=== PATIENT | female | born 1960 | race Caucasian/White ===

== ENCOUNTER 2020-03-09 08:20 | Day surgery (SDC) | payer MEDICAID, SELFPAY ==
--- NOTE | 2020-03-08 09:30 | HO.ANESPROP2 ---
HPI - Anesthesia Eval Consult details Narrative: 59yo F for EGD and Colonoscopy PMFSH Past Medical History Medical History Abdominal pain Back pain Benign brain tumor Depression Eczema Fibromyalgia GERD (gastroesophageal reflux disease) Hypertension Migraine Chao's neuroma of both feet Nephrolithiasis Panic disorder Surgical History Surgical History History of cholecystectomy History of colonoscopy Social History Social History Alcohol intake: never Smoking Status: Light tobacco smoker Use of substances other than those prescribed or required for medical reasons: No Meds Allergies Allergy/AdvReac Type Severity Reaction Status Date / Time acetaminophen [Tylenol] Allergy Unknown Verified 01/11/20 00:00 aspirin [ASPIRIN] Allergy Unknown ANAPHYLAXIS, Unverified 01/26/20 16:16 nausea & vomiting ibuprofen [From MOTRIN] Allergy Unknown NAUSEA & Unverified 01/26/20 16:16 VOMITING naproxen [NAPROXEN] Allergy Unknown NAUSEA & Unverified 01/26/20 16:16 VOMITING Ibuprofen Allergy Unknown nausea & Uncoded 01/11/20 00:00 vomiting Exam Exam Date and Time: March 08, 202030 Pertinent Lab Results Pertinent Lab Results: Laboratory Tests 12/12/19 12/12/19 21:15 21:15 WBC 9.2 Hgb 12.4 Hct 37.8 Plt Count 257 Sodium 137 Potassium 4.6 Chloride 103 BUN 14 Creatinine 0.63 Assessment and Plan Assessment Anesthesia Assessment: Chart Reviewed
[2020-03-09 08:56] VITALS: BMI 29.7
[2020-03-09 09:06] VITALS: BP 112/57; PULSE 82; RESP 18; TEMP 36.2; O2SAT 95
[2020-03-09 09:15] LABS: Glucose, Whole Blood 107 mg/dL (60-115)
[2020-03-09] MEDS: Lactated Ringers 1,000 ML 100 ML IVCONT (09:15)
--- NOTE | 2020-03-09 09:33 | MHC.SHP ---
Pre-Procedural Eval Section B Chief Complaint: change of liver Details of Present Illness: Colon cancer screening, family history of colon cancer. nausea, decreased appetite-persistent acid reflux-her appetite seems much less. Relevant Family History (Specify if Yes): Yes Relevant Social History: Tobacco Use Present Medications: see Short Stay Collaborative assessment Medical History: Significant History ( Migraine. Tobacco use. History of nephrolitis. GERD. Chronic back pain. Abdominal pain of rt. Upper quadrant. Benign brain tumor. Depression. eczema of RT hand. Fibromyalgia. Nephrolithiasis. Hypertension. Pa) History of Previous Operations: Relevant previous surgery/procedure and date(s) (Cholecystectomy 2015 Colonoscopy-10 yrs ago ) Allergies: Allergies Allergy/AdvReac Type Severity Reaction Status Date / Time aspirin [ASPIRIN] Allergy Unknown ANAPHYLAXIS, Unverified 01/26/20 16:16 nausea & vomiting ibuprofen [From MOTRIN] Allergy Unknown NAUSEA & Unverified 01/26/20 16:16 VOMITING naproxen [NAPROXEN] Allergy Unknown NAUSEA & Unverified 01/26/20 16:16 VOMITING Ibuprofen Allergy Unknown nausea & Uncoded 01/11/20 00:00 vomiting Review of Systems Sugical H&P ROS: Negative: Cardiovascular and Respiratory and Yes, Specify: Gastrointestinal (RUQ pain) Exam Surgical H&P Exam: Normal: Heart, Normal: Lungs and Normal: Extremities and Significant Findings: Abdomen (RUQ tenderness) Plan Diagnosis/Plan: Unchanged Patient has been examined and remains a candidate for the planned procedure
--- NOTE | 2020-03-09 09:35 | P.BOP_ITS ---
Brief Operative Note Date of procedure: 03/11/20 Pre-op diagnosis: colon cancer screening, right upper quadrant pain and nausea. Post-op diagnosis: other (Gastritis, diverticulosis, hemorrhoids) Procedure: FLEXIBLE TRANSORAL UPPER GASTROINTESTINAL ENDOSCOPY AND COLONOSCOPY PROCEDURE NOTE UPPER ENDOSCOPY Consent: Indications for the procedure and potential complications of bleeding, perforation, reaction to medications and missed diagnosis were discussed with the patient and informed consent was obtained. Instrument: Olympus GIF H 190 mid size upper endoscope Monitoring: Vital signs and clinical assessment, continuous EKG monitoring, Pulse oximetry, Carbon Dioxide monitoring and blood pressure monitoring were done throughout the procedure. Procedure: The patient was placed in the left lateral decubitis position and pre-procedure medications were administered and a bite block was placed. The endoscope was inserted into the mouth and advanced under direct vision to the third part of duodenum. A careful inspection was made as the upper endoscope was withdrawn including a retroflexed examination of the proximal stomach; Findings and interventions are described below. Findings: Larynx: Normal Esophagus: GE junction at 36 cms. No esophagitis or Barretts Stomach: Mild diffuse gastric erythema with nodular appearing gastric mucosa. Biopsies were obtained from the gastric body and antrum. Grade 2 flap valve on retroflexed examination of the cardia. Duodenum: Normal bulb and descending duodenum. Biopsies were obtained from 3rd part of the duodenum to check for celiac sprue Intervention: Biopsies as noted above COLONOSCOPY PROCEDURE NOTE Consent: Indications for the procedure and potential complications of bleeding, perforation, reaction to medications and missed diagnosis were discussed with the patient and informed consent was obtained. Instrument: Olympus PCF H 190 L variable stiffness pediatric colonoscope Monitoring: Vital signs and clinical assessment, intermittent blood pressure monitoring, continuous EKG monitoring, Pulse oximetry and Carbon Dioxide monitoring were done throughout the procedure. Colon withdrawl time was 14 minutes. Procedure: The patient was placed in the left lateral decubitis position and pre-procedure medications were administered. After a digital rectal examination of the ano-rectum, the video colonoscope was inserted into the rectum and advanced through the colon to the cecum. The colonoscope was slowly withdrawn in a retrograde panoramic fashion and the colon mucosa was carefully examined including a retroflexed view of the rectum. Findings and interventions are described below. Procedure Difficulty: Without difficulty Findings: Terminal Ileum: Not evaluated Cecum: Normal Ascending Colon: Normal Transverse Colon: Normal Descending Colon: moderate diverticulosis Sigmoid Colon: Moderate diverticulosis Rectum: Normal Ano-rectum: Moderate internal hemorrhoids Colon preparation: Good after some irrigation Impression and Post Procedure Diagnosis: Endoscopy Findings STOMACH: Mild diffuse gastric erythema with nodular appearing gastric mucosa. Biopsies were obtained from the gastric body and antrum DUODENUM: Normal - bxed to check for celiac sprue Colonoscopy Findings: No polyps were detected. Random biopsies were obtained from the colon. Moderate diverticulosis seen in the left colon Moderate hemorrhoids on retroflexed exam. Plan: Await pathology results Patient has an appointment on 03/20/20in the GI Clinic with KURT Rosales. Repeat Colonoscopy interval based on path results - in 5 years due to positive FH of colon cancer. Above findings were reviewed with the patient and Gastritis and diverticulosis handouts were given in the discharge area Surgeon: Bertin Armendariz MD Anesthesia: MAC (Dr Heard & Dr Reyna) Clinical Mental Health Counselor: Mariam Shah Estimated blood loss (mL): 0 Pathology: other (A. Small bowel, B. Gastric antrum, C. Gastric body, D. Ran dom colon bxs.) Condition: stable Disposition: PACU
--- NOTE | 2020-03-09 09:37 | P.CONAN_ITS ---
[facility] Past Medical History Medical History Abdominal pain Back pain Benign brain tumor Depression Eczema Fibromyalgia GERD (gastroesophageal reflux disease) Hypertension Migraine Chao's neuroma of both feet Nephrolithiasis Panic disorder Surgical History Surgical History History of cholecystectomy History of colonoscopy Social History Social History Alcohol intake: never Smoking Status: Current some day smoker Use of substances other than those prescribed or required for medical reasons: No Advance Directives: No Meds Allergies Allergy/AdvReac Type Severity Reaction Status Date / Time aspirin [ASPIRIN] Allergy Unknown ANAPHYLAXIS, Unverified 01/26/20 16:16 nausea & vomiting ibuprofen [From MOTRIN] Allergy Unknown NAUSEA & Unverified 01/26/20 16:16 VOMITING naproxen [NAPROXEN] Allergy Unknown NAUSEA & Unverified 01/26/20 16:16 VOMITING Ibuprofen Allergy Unknown nausea & Uncoded 01/11/20 00:00 vomiting Home Medications Medication Instructions Recorded Confirmed Type acetaminophen 500 mg PO Q6H PRN 03/09/20 03/09/20 History clonazepam 1 mg PO TID 03/09/20 03/09/20 History fluticasone propionate 1 inh INHALATION BID 03/09/20 03/09/20 History metformin 500 mg PO DAILY 03/09/20 03/09/20 History omeprazole 20 mg PO DAILY 03/09/20 03/09/20 History sumatriptan succinate 50 mg PO Q2-4H PRN 03/09/20 03/09/20 History Exam Exam Date and Time: March 09, 2020 0937 Height,Weight and Vital Signs: Height 5 ft Weight 68.946 kg Last Vital Signs Temp 97.1 F 03/09/20 09:06 Pulse 82 03/09/20 09:06 Resp 18 03/09/20 09:06 BP 112/57 L 03/09/20 09:06 Pulse Ox 95 03/09/20 09:06 Pertinent Lab Results Pertinent Lab Results: Laboratory Tests 03/09/20 09:09 POC Glucose 107 Airway Mallampati Class: II TM Dist: >3cm Neck ROM: Full Loose/Missing/Broken Teeth: No Heart: rrr Lungs: clear Assessment and Plan Assessment Anesthesia Assessment: Anesthesia Plan Discussed and Chart Reviewed Final Anesthetic Review NPO: Yes ASA Class: II Final Preanesthetic Review: No Changes in Pt Med Stat, Meds/Allgs Chart Reviewed, Consent Obtained/Reviewed and Anes Risks/Benef Reviewed Patient Risk: Intermediate Procedure Risk: Low Anesthetic Plan Anesthetic Plan: MAC: Disposition: Standard PACU
[2020-03-09 10:43] VITALS: BP 95/65; PULSE 71; RESP 16; TEMP 36.2; O2SAT 95
[2020-03-09 10:53] VITALS: BP 111/69; PULSE 74; RESP 19; TEMP 36.4; O2SAT 95
--- NOTE | 2020-03-09 11:01 | HO.POSTANES ---
Post Anesthesia Evaluation Post Anesthesia Evaluation Vital Signs: Vital Signs Temp Pulse Resp BP Pulse Ox 03/09/20 10:43 97.2 F 71 16 95/65 95 03/09/20 09:06 97.1 F 82 18 112/57 L 95 Anesthesia: Monitored Mental Status: Awake Pain Control: Satisfactory Nausea/Vomiting: None Hydration: Adequate Anesthesia-Related Issues: No Anes. Related Issues
--- NOTE | 2020-03-11 19:33 | W.PM.OPN ---
Operative Note Operative Note Narrative: Date of procedure: 03/11/20 Pre-op diagnosis: colon cancer screening, right upper quadrant pain and nausea. Post-op diagnosis: other (Gastritis, diverticulosis, hemorrhoids) PROCEDURE: FLEXIBLE TRANSORAL UPPER GASTROINTESTINAL ENDOSCOPY WITH BIOPSIES AND COLONOSCOPY TILL CECUM WITH BIOPSIES Consent: Indications for the procedure and potential complications of bleeding, perforation, reaction to medications, aspiration and missed diagnosis were discussed with the patient and informed consent was obtained. Monitoring: Vital signs and clinical assessment, continuous EKG monitoring, Pulse oximetry, Carbon Dioxide monitoring and blood pressure monitoring were done throughout the procedure. UPPER ENDOSCOPY Instrument: Olympus GIF H 190 mid size upper endoscope Procedure: The patient was placed in the left lateral decubitis position and pre-procedure medications were administered and a bite block was placed. The endoscope was inserted into the mouth and advanced under direct vision to the third part of duodenum. A careful inspection was made as the upper endoscope was withdrawn including a retroflexed examination of the proximal stomach; Findings and interventions are described below. Findings: Larynx: Normal Esophagus: GE junction at 36 cms. No esophagitis or Barretts Stomach: Mild diffuse gastric erythema with nodular appearing gastric mucosa. Biopsies were obtained from the gastric body and antrum. Grade 2 flap valve on retroflexed examination of the cardia. Duodenum: Normal bulb and descending duodenum. Biopsies were obtained from 3rd part of the duodenum to check for celiac sprue Intervention: Biopsies as noted above COLONOSCOPY PROCEDURE NOTE Instrument: Olympus PCF H 190 L variable stiffness pediatric colonoscope Colon withdrawl time was 14 minutes. Procedure: The patient was placed in the left lateral decubitis position and pre-procedure medications were administered. After a digital rectal examination of the ano-rectum, the video colonoscope was inserted into the rectum and advanced through the colon to the cecum. The colonoscope was slowly withdrawn in a retrograde panoramic fashion and the colon mucosa was carefully examined including a retroflexed view of the rectum. Findings and interventions are described below. Procedure Difficulty: Without difficulty Findings: Terminal Ileum: Not evaluated Cecum: Normal Ascending Colon: Normal Transverse Colon: Normal Descending Colon: moderate diverticulosis Sigmoid Colon: Moderate diverticulosis Rectum: Normal Ano-rectum: Moderate internal hemorrhoids Colon preparation: Good after some irrigation Impression and Post Procedure Diagnosis: Endoscopy Findings STOMACH: Mild diffuse gastric erythema with nodular appearing gastric mucosa. Biopsies were obtained from the gastric body and antrum DUODENUM: Normal - bxed to check for celiac sprue Colonoscopy Findings: No polyps were detected. Random biopsies were obtained from the colon. Moderate diverticulosis seen in the left colon Moderate hemorrhoids on retroflexed exam. Plan: Await pathology results Patient has an appointment on 03/20/20 in the GI Clinic with KURT Rosales. Repeat Colonoscopy interval based on path results - in 5 years due to positive FH of colon cancer. Above findings were reviewed with the patient and Gastritis and diverticulosis handouts were given in the discharge area Surgeon: Bertin Armendariz MD Anesthesia: MAC (Dr Heard & Dr Reyna) Box Truck Driver: Mariam Shah Estimated blood loss (mL): 0 Pathology: other (A. Small bowel, B. Gastric antrum, C. Gastric body, D. Random colon bxs.) Condition: stable Disposition: PACU
== END 2020-03-09 11:15 | disposition home or self-care (01) ==
PROVIDERS: PCP Internal Medicine; Visit Provider Internal Medicine Gastroenterology
PROC: (CPT 45380; principal; 2020-03-09 09:30)
DX: Z12.11 Encounter for screening for malignant neoplasm of colon (principal); Z80.0 Family history of malignant neoplasm of digestive organs; K57.30 Diverticulosis of large intestine without perforation or abscess without bleeding; K64.8 Other hemorrhoids; K29.50 Unspecified chronic gastritis without bleeding; B96.81 Helicobacter pylori [H. pylori] as the cause of diseases classified elsewhere; K21.9 Gastro-esophageal reflux disease without esophagitis; K76.0 Fatty (change of) liver, not elsewhere classified; I10 Essential (primary) hypertension; Z79.899 Other long term (current) drug therapy; Z90.49 Acquired absence of other specified parts of digestive tract; Z86.011 Personal history of benign neoplasm of the brain; Z88.8 Allergy status to other drugs, medicaments and biological substances; F17.200 Nicotine dependence, unspecified, uncomplicated
CPT/HCPCS: 45380; 43239; 82947; 88305; 88342

== ENCOUNTER → 2020-04-09 08:17 | Outpatient (BNVA) | payer MEDICAID, SELFPAY | PROVIDERS: PCP Internal Medicine; Referring Provider Internal Medicine; Visit Provider Physician Assistant | DX: Z76.89 Persons encountering health services in other specified circumstances (principal) ==

== ENCOUNTER → 2020-05-14 08:58 | Outpatient (BNVA) | payer MEDICAID, SELFPAY | PROVIDERS: PCP Internal Medicine; Visit Provider Physician Assistant | DX: Z76.89 Persons encountering health services in other specified circumstances (principal) ==

== ENCOUNTER → 2020-05-17 14:42 | Outpatient (BNVA) | payer MEDICAID, SELFPAY | PROVIDERS: PCP Internal Medicine; Visit Provider Physician Assistant | DX: Z76.89 Persons encountering health services in other specified circumstances (principal) ==

== ENCOUNTER → 2021-01-01 08:32 | Outpatient (BNVA) | payer MEDICAID, SELFPAY | PROVIDERS: Visit Provider Physician Assistant ==

== ENCOUNTER → 2021-02-05 08:29 | Outpatient (BNVA) | payer MEDICAID, SELFPAY | PROVIDERS: Visit Provider Physician Assistant ==

== ENCOUNTER 2022-10-24 13:08 | Outpatient (REF) | payer MEDICAID, SELFPAY ==
--- NOTE | ~2022-10-24 | XR_ITS ---
EXAMINATION: XR LUMBOSACRAL SPINE WITH OBLIQUES CLINICAL INFORMATION: Fall COMPARISON: None available. TECHNIQUE: AP, both oblique, and lateral views of the lumbar spine. Lateral view of the lumbosacral junction. FINDINGS: Bone alignment is normal. No fracture or dislocation. Disc spaces are normal. There is lower lumbar spine facet arthritis. No pars defect. XR/XR lumbar spine 4V min IMPRESSION: Degenerative changes.
== END 2022-10-24 13:09 | disposition home or self-care (01) ==
LOC: HO.HHCX 13:08
PROVIDERS: Visit Provider Internal Medicine
DX: M47.816 Spondylosis without myelopathy or radiculopathy, lumbar region (principal)
CPT/HCPCS: 72110

== ENCOUNTER 2023-02-10 14:09 | Outpatient (REF) | payer MEDICAID, SELFPAY ==
--- NOTE | ~2023-02-10 | MR_ITS ---
EXAMINATION: MR LUMBAR SPINE WITHOUT CONTRAST CLINICAL INFORMATION: 62-year-old with radiculopathy. Self-reported low back pain, numbness in hips and multiple falls. History of coccygeal tumor. COMPARISON: None available. TECHNIQUE: MRI of the lumbar spine was obtained using routine sequences without contrast. FINDINGS: Coronal Alignment: Slight lower lumbar dextrocurvature noted, minimally convex to the right at L4-L5. Sagittal Alignment: Trace anterolisthesis at L4-L5 without spondylolysis. Otherwise normal spinal alignment in the sagittal plane. Lumbosacral Junction: Normal. There are 5 msf-vww-rpftttb lumbar-type vertebral bodies. Vertebral Bodies: Vertebral body heights are well maintained. Disc Spaces and Endplates: The intervertebral disc space heights are well maintained. There is multilevel disc desiccation. Minor anterior marginal endplate spurring noted at the levels between L2-L3 and L5-S1 inclusive. Endplates appear grossly intact. Spinal Canal: No abnormal developmental findings. Bone Marrow: Minimal type 2 degenerative marrow signal changes along the endplates at L2-L3. A 1.7 cm benign vertebral hemangioma in the L4 vertebral body on the right. A 2.7 cm benign vertebral hemangioma in the S1 vertebral segment. No suspicious marrow replacing process or bone marrow edema. Conus Medullaris: Terminates at L1. Morphology and signal is normal. Intradural Nerve Roots: Within normal limits. L5-S1: Shallow broad-based disc protrusion with underlying mild disc bulging with minimal indentation of the ventral thecal sac. Zlbp-ux-ofndtlmn facet arthropathy, left more than right without significant canal stenosis. There is fazo-mr-yqpgsiqs bilateral neural foraminal stenosis, with mild encroachment on the exiting L5 nerve roots bilaterally. L4-L5: Slight unroofing of the posterior disc margin related to trace anterolisthesis. There is disc bulging and a superimposed shallow broad-based left paramedian to lateral foraminal disc protrusion with slight flattening of the dural sac asymmetric to the left. There is ladq-sx-gonurjbq left-sided and moderate to marked right-sided facet arthropathy without central canal stenosis. There is slight narrowing of the left subarticular zone without neural impingement. There is wyzj-ge-hinssszy left and mild right-sided neural foraminal narrowing with left lateral disc protrusion contacting the extra foraminal left L4 nerve root. L3-L4: Small foraminal disc protrusions noted bilaterally with minimal underlying disc bulging, with mild facet arthrosis on the right without significant canal stenosis. There is mild foraminal narrowing on the left without neural impingement. L2-L3: No significant disc bulge or herniation. Mild facet hypertrophic change on the right. No canal or foraminal stenosis. L1-L2: Normal annular contour. No facet arthrosis, canal or neuroforaminal stenosis. Paravertebral and Included Extraspinal Soft Tissues: The visualized paravertebral soft tissues and included retroperitoneal structures are unremarkable within the limitations of the exam. MR/MR lumbar spine wo con IMPRESSION: 1. Slight lower lumbar curvature, convex to the right at L4-L5 with trace anterolisthesis at L4-L5 without spondylolysis. 2. Multilevel mild degrees of disc desiccation and spondylosis with multilevel disc bulging and broad-based left paramedian to lateral foraminal disc protrusion at L4-L5 with multilevel bilateral facet arthropathy. No significant central canal stenosis. 3. Zlxk-sf-ymqpchqj bilateral neural foraminal stenosis at L5-S1 with mild encroachment on the exiting L5 nerve roots bilaterally. Efwy-lh-mtamkpfa left and mild right-sided neural foraminal stenosis at L4-L5 with left lateral disc protrusion contacting the extraforaminal left L4 nerve root. 4. Small foraminal disc protrusions bilaterally at L3-L4 with mild left-sided foraminal narrowing without neural impingement.
== END 2023-02-10 14:10 | disposition home or self-care (01) ==
LOC: HO.MRI 14:09
PROVIDERS: PCP Internal Medicine; Visit Provider Internal Medicine
DX: M47.26 Other spondylosis with radiculopathy, lumbar region (principal)
CPT/HCPCS: 72148

== ENCOUNTER 2024-08-30 14:39 | Outpatient (REF) | payer MEDICAID, SELFPAY ==
--- NOTE | ~2024-08-30 | XR_ITS ---
EXAMINATION: XR LUMBOSACRAL SPINE CLINICAL INFORMATION: Chronic back pain COMPARISON: None available. TECHNIQUE: Three views of the lumbosacral spine. FINDINGS: No scoliosis. Normal lordosis. No fracture, compression deformity, or suspicious bone lesion. No subluxations. Minimal disc degeneration noted most significant at L2-3. Normal facet alignment. SI joints and sacrum appear normal. Soft tissues demonstrate cholecystectomy clips. XR/XR lumbar spine 2-3V IMPRESSION: No acute bony abnormalities. Early disc degeneration. Electronically signed by: Dwight Colón MD 08/30/2024 04:02 PM EDT
--- NOTE | ~2024-08-30 | XR_ITS ---
EXAMINATION: XR THORACIC SPINE CLINICAL INFORMATION: Chronic back pain COMPARISON: None available. TECHNIQUE: 3 views of the thoracic spine were obtained. FINDINGS: There is no significant scoliosis. There is a normal kyphosis. There is no compression deformity, acute fracture, or suspicious bone lesion. There is no malalignment. Early multilevel disc space degeneration. Normal facet alignment. Soft tissues, imaged lungs and mediastinal contents appear normal. XR/XR thoracic spine 3V IMPRESSION: 1. No acute findings. Minimal disc degeneration. Electronically signed by: Dwight Colón MD 08/30/2024 04:00 PM EDT
--- NOTE | ~2024-08-30 | XR_ITS ---
EXAMINATION: XR KNEE, RIGHT CLINICAL INFORMATION: ongoing pain in her right knee COMPARISON: None available. TECHNIQUE: Four views of the right knee. FINDINGS: No fracture or joint effusion. Alignment is anatomic. Joint spaces are maintained. No abnormal soft tissue calcification. XR/XR knee RT 3V IMPRESSION: Normal right knee. Electronically signed by: Dwight Colón MD 08/30/2024 03:56 PM EDT
--- OUTSIDE RECORDS SUMMARY | 2024-08-30 17:30 | XMS_ITS | Clinical Summary ---
Author Organization [facility] ity Address [address] [place] [address] Care Team Providers Care Clinical Research Spec Name Role Phone Unavailable Primary Care Provider Unavailabl e Social History Tobacco Use Types Packs/Day Years Used Date Smoking Tobacco: Never Assessed Comments Unknown Sex and Gender Information Value Date Recorded Sex Assigned at Not on file Legal Sex Female 5:01 AM EST Gender Identity Not on file Sexual Orientation Not on file Plan of Treatment Health Maintenance Due Date Last Done Comments Breast Cancer Screening 1959 DTaP,Tdap,and Td Vaccines (1 - Tdap) 1978 Cervical Cancer Screening: P ap Smear 1980 Pneumococcal Vaccine: 50+ Ye ars (1 of 1 - PCV) 2009 Zoster Vaccines (1 of 2) 2009 COVID-19 Vaccine ( - 2023-2 5 season) 2024 Influenza Vaccine (Season Ended) 2025 RSV Immunization Adult Patie nts (1 - 1-dose 75+ series) 2034 HIB Vaccines Aged Out No longer eligi ble based on patient's age to complete this topic HPV Vaccines Aged Out No longer eligi ble based on patient's age to complete this topic Hepatitis A Vaccines Aged Out No long er eligible based on patient's age to complete this topic Hepatitis B Vaccines Aged Out No long er eligible based on patient's age to complete this topic IPV Vaccines Aged Out No longer eligi ble based on patient's age to complete this topic MMR Vaccines Aged Out No longer eligi ble based on patient's age to complete this topic Meningococcal ACWY Vaccine Aged Out N o longer eligible based on patient's age to complete this topic Meningococcal B Vaccine Aged Out No l onger eligible based on patient's age to complete this topic Pneumococcal Vaccine: Pediat rics (0 to 5 Years) and At-Risk Patients (6 to 64 Years) Aged Out No longer eligible b ased on patient's age to complete this topic RSV Immunization Patients Un yenni 20 months Aged Out No longer eligible b ased on patient's age to complete this topic Varicella Vaccines Aged Out No longer eligible based on patient's age to complete this topic
--- OUTSIDE RECORDS SUMMARY | 2024-08-30 17:30 | XMS_ITS | Encounter Summary ---
Author Organization [facility] Address [address] [place] [address] [address] [place] [address] Care Team Providers Care Director Of Retail Operations Name Role Phone Luda Gimenez MD Primary Care Pro vider Reason for Visit * Reason Comments Med Refill Encounter Details Date Type Department Care Team (Late st Contact Info) Description 08/11/2023 Refill [facility] [address] [place] [address] [phone] Calli Bishop MD [address] [place] [address] [phone] Osteoarthritis of spine with radiculopathy, lumbar region; Acute exacerbation of chronic low back pain Social History Tobacco Use Types Packs/Day Years Used Date Smoking Tobacco: Every Day Cigarettes Passive Smoke Exposure: Current Smokeless Tobacco: Never Alcohol Use Standard Drinks/Week Comments Never 0 (1 standard drink = 0.6 oz pur e alcohol) Comments Unknown Sex and Gender Information Value Date Recorded Sex Assigned at Female 03/10/2022 10:15 AM EDT Legal Sex Female 10:15 AM EDT Gender Identity Female 03/10/2022 10:15 AM EDT Sexual Orientation Straight 01/06/2024 2: 48 PM EDT documented as of this encounter Plan of Treatment Upcoming Encounters Date Type Department Care Team (Late st Contact Info) Description 11/09/2024 2:45 PM EDT Office Visit [facility] [address] [place] [address] [phone] Luda Gimenez MD [address] [place], [place] [phone] documented as of this encounter Visit Diagnoses Diagnosis Osteoarthritis of spine with radiculopathy, lumbar region Acute exacerbation of chronic low back pain documented in this encounter Care Teams Director Of Retail Operations Relationship Specialty Start Date End Date Luda Gimenez MD [address] [place] [id number] PCP - General Internal Medicine 07/16/23 documented as of this encounter
--- OUTSIDE RECORDS SUMMARY | 2024-08-30 17:30 | XMS_ITS | Encounter Summary ---
Author Organization [employer] Address [address] [place] [address] Care Team Providers Care Programmer Operator Numerical Control Name Role Phone Luda Gimenez MD Primary Care Pro vider Reason for Visit * Reason Onset Date Comments Results 08/30/2024 Encounter Details Date Type Department Care Team (Late st Contact Info) Description 08/30/2024 Telephone [facility] [address] [place], [place] [phone] Heidi Fagan RN Results Social History Tobacco Use Types Packs/Day Years Used Date Smoking Tobacco: Every Day Cigarettes Passive Smoke Exposure: Current Smokeless Tobacco: Never Comments:Started smoking 29 y of age ,stopped for 8 months but agaibn,currently smoking again Smoking for 34 years 10 cig a day currently aprox 2 cig a day . PQT a year 17 Alcohol Use Standard Drinks/Week Comments Never 0 (1 standard drink = 0.6 oz pur e alcohol) Depression Answer Date Recorded Patient Health Questionnaire-9 Score 1 01/06/2024 Patient Health Questionnaire-9 Score 1 01/06/2024 Last PHQ-9: Questionnaire Data Not on file 0 01/06/2024 Housing Stability Answer Date Recorded What is your housing situation today? I have taurus saucedo 08/30/[address] you li ve. Do you have problems with any of the following? None of the above 08/30/2024 Food Insecurity Answer Date Recorded Within the past 12 months, y ou worried that your food would run out before you got money to buy more: Never True 08/30/2024 Within the past 12 months,th e food you bought just didn't last and you didn't have enough money to get more: Never True Transportation Answer Date Recorded In the past 12 months, has l ack of transportation kept you from medical appts, meetings, work or from getting things needed for daily living? No 08/30/2024 Utilities Answer Date Recorded In the past 12 months, has t he electric, gas, oil or water company threatened to shut off services in your home? No 08/30/2024 Depression Answer Date Recorded Patient Health Questionnaire-2 Score 1 01/06/2024 Internet Access Answer Date Recorded Internet Access Q1 Yes 01/08/2024 Internet Access Q2 Not on file 01/08/2024 Comments Unknown Sex and Gender Information Value Date Recorded Sex Assigned at Female 03/10/2022 10:15 AM EDT Legal Sex Female 10:15 AM EDT Gender Identity Female 03/10/2022 10:15 AM EDT Sexual Orientation Straight 01/06/2024 2: 48 PM EDT documented as of this encounter Miscellaneous Notes * Telephone Encounter - Heidi Fagan RN - 08/30/2024 4:09 PM EDT TC placed to pt with S transfer coordinator #[id number] to inform of pt x ray results below as reviewed by PCP. Pt agreeable to the findings showing minimal disc degeneration and will await call to have MRI scheduled. Pt to follow up as needed. ----- Message from Luda Chaudhry MD sent at 08/30/2024 4:08 PM EDT ----- Please inform pt that knee XR and thoracic XR are normal Lumbar XR is showing Minimal disc degeneration noted most significant at L2-3. Please advise to continue w rest of plan as today and to get back MRI Thanks documented in this encounter Plan of Treatment Upcoming Encounters Date Type Department Care Team (Late st Contact Info) Description 11/09/2024 2:45 PM EDT Office Visit [facility] [address] [place] [phone] Luda Gimenez MD [address] [place] [phone] documented as of this encounter Visit Diagnoses Not on filedocumented in this encounter Additional Health Concerns Assessment Noted Time PHQ-9 Depression Total Score: 1 01/06/20 24 2:26 PM EDT documented as of this encounter Care Teams Programmer Operator Numerical Control Relationship Specialty Start Date End Date Luda Gimenez MD [address] [place] [phone] PCP - General Internal Medicine 07/16/23 documented as of this encounter
--- OUTSIDE RECORDS SUMMARY | 2024-08-30 17:30 | XMS_ITS | Encounter Summary ---
Author Organization [employer] Address [address] [place] [address] [address] [place] [address] Care Team Providers Care Mine Environmental Engineer Name Role Phone Calli Bishop MD Primary Care Provider + Luda Gimenez MD Primary Care Pro vider Encounter Details Date Type Department Care Team (Late st Contact Info) Description 01/14/2023 Orders Only [facility] [address] [place], [place] [phone] Latasha Ziegler LPN Social History Tobacco Use Types Packs/Day Years Used Date Smoking Tobacco: Every Day Cigarettes Passive Smoke Exposure: Current Smokeless Tobacco: Never Comments Unknown Sex and Gender Information Value [...] Description 11/09/2024 2:45 PM EDT Office Visit [facility] [address] [place], [place] [phone] Luda Gimenez MD [address] [place], [place] [phone] documented as of this encounter Visit Diagnoses Not on filedocumented in this encounter Care Teams Mine Environmental Engineer Relationship Specialty Start Date End Date Calli Bishop MD [address] [place], [place] [phone] PCP - General Family Medicine 12/06/18 07/15/23 Luda Gimenez MD [address] [place] [id number] PCP - General Internal Medicine 07/16/23 documented as of this encounter
--- OUTSIDE RECORDS SUMMARY | 2024-08-30 17:30 | XMS_ITS | Clinical Summary ---
Author Organization [employer] Address [address] [place] [address] Care Team Providers Care Scanning Coordinator Name Role Phone Luda Gimenez MD Primary Care Pro vider Allergies Active Allergy Reactions Criticality Noted Date Comments Aspirin 09/05/2014 Other reaction(s): Nausea/Vomiting Ibuprofen Angioedema 09/05/2014 Other reaction(s): Nausea/Vomiting Naproxen 09/05/2014 Other reaction(s): Nausea/Vomiting Medications Calcium Carb-Cholecalcife rol 600-10 MG-MCG tabletIndications :Age related osteoporosis, unspecified pathological fracture presence Take 2 tablets by mouth in the morning. 180 tablet 1 023 Active Mometasone Furoate (Asmanex HFA) 200 MCG/ACT aerosol INHALE 1 PUFF INTO THE LUNGS TWICE DAILY 13 g 2 024 Active methocarbamol (Robaxin) 750 MG tabletIndications :Osteoarthritis of spine with radiculopathy, lumbar region,Acute exacerbation of chronic low back pain TAKE 1 TABLET(750 MG) BY MOUTH EVERY 12 HOURS NEEDED FOR MUSCLE SPASMS 60 tablet 3 024 Active ergocalciferol (Vitamin D2) 1.25 MG (84689 UT) capsule TAKE 1 CAPSULE BY MOUTH EVERY WEEK 12 capsule 024 Active nicotine polacrilex ([employer] Nicotine) 2 MG gum Chew 1 each (2 mg) every 2 (two) hours if needed for smoking cessation. 100 each 024 Active fluticasone (Flonase) 50 MCG/ACT nasal sprayIndications: Subacute maxillary sinusitis ADMINISTER 1 SPRAY INTO EACH NOSTRIL EVERY MORNING 48 g 1 025 Active Acetaminophen Extra Strength 500 MG tabletIndications :Osteoarthritis of spine with radiculopathy, lumbar region TAKE 1 TABLET BY MOUTH EVERY 6-8 HOURS NEEDED 360 tablet 1 025 Active SUMAtriptan (Imitrex) 100 MG tabletIndications :Migraine without aura, not refractory TAKE 1 TABLET BY MOUTH AT ONSET OF MIGRAINE. MAY REPEAT AFTER 2 HOURS. IF HEADACHE RETURNS. NOT TO EXCEED 200 MG IN 24 HOURS 10 tablet 2 025 Active pantoprazole (ProtoNix) 40 MG EC tabletIndications :Gastroesophageal reflux disease, unspecified whether esophagitis present TAKE 1 TABLET(40 MG) BY MOUTH TWICE DAILY. DO NOT CRUSH, CHEW, OR SPLIT. 180 tablet 025 Active metFORMIN XR (Glucophage-XR) 500 MG 24 hr tablet TAKE 1 TABLET BY MOUTH EVERY DAY 90 tablet 025 Active atorvastatin (Lipitor) 20 MG tabletIndications :Mixed hyperlipidemia TAKE 1 TABLET BY MOUTH EVERY DAY 90 tablet 025 Active promethazine (Phenergan) 25 MG tabletIndications :Migraine without aura, not refractory TAKE 1 TABLET BY MOUTH EVERY MORNING AND EVERY NIGHT AT BEDTIME NEEDED FOR NAUSEA 60 tablet 025 Active Blood Pressure kit 1 Device Once per day. 1 kit 025 Active pregabalin (Lyrica) 25 MG capsuleIndication s:Back pain, unspecified back location, unspecified back pain laterality, unspecified chronicity Take 1 capsule (25 mg) by mouth at bedtime. 30 capsule 1 025 2025 Active lidocaine (Lidoderm) 5 % patchIndications: Osteoarthritis of spine with radiculopathy, lumbar region Apply 1 patch topically Once per day. Remove & discard patch within 12 hours or as directed by . 30 patch 2 025 Active lidocaine (Lidoderm) 5 % patchIndications: Osteoarthritis of spine with radiculopathy, lumbar region Apply 1 patch topically Once per day. APPLY 3 PATCHES TOPICALLY EVERY MORNING AND REMOVE AFTER 12 HOURS 90 patch 024 2024 Discontinued atorvastatin (Lipitor) 20 MG tabletIndications :Mixed hyperlipidemia TAKE 1 TABLET BY MOUTH EVERY DAY 90 tablet 024 2024 Discontinued metFORMIN XR (Glucophage-XR) 500 MG 24 hr tablet TAKE 1 TABLET BY MOUTH EVERY DAY 90 tablet 024 2024 Discontinued promethazine (Phenergan) 25 MG tabletIndications :Migraine without aura, not refractory TAKE 1 TABLET BY MOUTH EVERY MORNING AND 1 TABLET EVERY NIGHT AT BEDTIME NEEDED FOR NAUSEA 60 tablet 025 2024 Discontinued lidocaine (Lidoderm) 5 % patchIndications: Osteoarthritis of spine with radiculopathy, lumbar region APPLY 3 PATCHED TOPICALLY IN THE MORING AND REMOVE AFTER 12 HOURS 90 patch 025 2024 Discontinued(R eorder (will not trigger notification to Pharmacy)) Active Problems Problem Noted Date Diagnosed Date Migraine 01/06/2024 Right knee pain 01/06/2024 Lumbar radiculopathy, chronic 03/27/2023 Osteoarthritis of lumbar spine 10/24/2022 Assessment & Plan (03/27/2023 2:49 PM EST): Had a lengthy discussion with Pt regarding Tx options She did not FU with PT, I encouraged her to reschedule appointment with PT She agreed to be referred to pain clinic Continue tylenol prn Counseled to quit smoking. Counseled re walking with a cane, I will rx one. We also discussed about risk of falls due to pain, I will rx a shower chair and a raised toilette seat so that she can support herself/prevent falls in the bathroom. Assessment & Plan (10/24/2022 2:08 PM EDT): Patient has known OA L-spine, pain must have been exacerbated sp fall 2w ago. Recommended to use cane to prevent falls, new rx sent. Use tylenol bid And heat to affected areas. Order Xray L-spine to ro fracture Tramadol 15 tab only for shor term so she can mobilize and start stretching exercises. I advised against prolonged rest. Patient is aware that I will not be starting her on chronic opiate/tramadol/controlled substance rx at this time, specially given MH condition and hx previous tramadol dependence few years ago. I explained that pain is most likely to be exacerbated by recent fall and that it will gradually go back to baseline which she has managed well so far without controlled substances. FU w me in 3w Chronic vaginitis 08/22/2022 H. pylori infection 08/22/2022 Chronic gastritis 03/09/2020 Overview (12/25/2022): [place] 03/09/20 [place] [place].Pil[place] Assessment & Plan (10/24/2022 2:03 PM EDT): Patient will call back GI to appt for fu Fu weight at next appt Diverticulosis of colon 03/09/2020 Internal hemorrhoids 03/09/2020 Bipolar affective disorder, current episode mixe d 02/22/2018 Assessment & Plan (10/24/2022 2:23 PM EDT): Sees psychiatry and counselor. No change in POC. Currently with increased anxiety due to pain. Bring meds at next appt. Feels safe at home. Carpal tunnel syndrome 02/22/2018 Mild intermittent asthma 02/22/2018 Chao's neuroma of both feet 02/22/2018 Prediabetes 02/22/2018 Assessment & Plan (10/24/2022 2:21 PM EDT): Will order labs and fu at next appt Continue metformin for now. May consider to change it Due to GI sxs. Hyperlipidemia 11/26/2016 Fibromyalgia 10/22/2016 Essential hypertension 10/22/2016 Assessment & Plan (10/24/2022 2:03 PM EDT): Controlled, not taking meds. Continue off meds for now. Counseled re low salt diet/increase moderate physical activity. Check home BP BIW and prn CP/MISHRA/SWEET Non smoking patient. Migraine without aura, not refractory 10/22/2016 Assessment & Plan (04/21/2023 12:29 PM EST): Minimally improved after Tx of sinusitis Counseled to quit smoking, may need prophylactic medication Cont Imitrex prn FU in 2 m after she has cut down smoking significantly Assessment & Plan (03/27/2023 2:32 PM EST): Continue Imitrex prn or tylenol Treat underline condition, sinusitis at this time Overweight (BMI 25.0-29.9) 10/22/2016 Panic disorder 10/22/2016 Tobacco dependence syndrome 09/25/2014 Benign neoplasm of brain 09/12/2014 Gastroesophageal reflux disease 09/12/2014 Resolved Problems Problem Noted Date Diagnosed Date Resolved Date Sinusitis 08/22/2022 04/21/2023 Encounters Date Type Department Care Team Description 08/30/2024 1:15 PM EDT Office Visit [facility] [address] [place] [address] Luda Gimenez MD Back pain, unspecified back location, unspecified back pain laterality, unspecified chronicity (Primary Dx); Osteoarthritis of spine with radiculopathy, lumbar region 08/30/2024 Telephone [facility] [address] [place] [phone] Heidi Fagan, RN Results 08/30/2024 Telephone [facility] [address] [place] [address] [phone] Luda Gimenez MD Durable Medical Equipment 08/30/2024 Travel 08/26/2024 Telephone [facility] [address] [place] [address] Luda Gimenez MD Prior Auth Prescription 08/22/2024 Telephone [facility] [address] [place] [address] [phone] Luda Gimenez MD chart prep 08/22/2024 Patient Outreach [facility] [address] [place], [place] [phone] Luda Gimenez MD Pre-visit Planning ([facility] unable to complete.) 08/21/2024 Refill [facility] [address] [place] [address] Calli Bishop MD Osteoarthritis of spine with radiculopathy, lumbar region 08/02/2024 Refill [facility] [address] [place] [address] Gwen Del Real NP Migraine without aura, not refractory 07/31/2024 Refill [facility] [address] [place] [address] Nerissa Julian ANP Mixed hyperlipidemia 07/22/2024 Telephone [facility] [address] [place] [phone] Denise Chavez MD Medication Question 07/18/2024 Telephone [facility] [address] [place] [address] [phone] Luda Gimenez MD August recalls 07/13/2024 Telephone [facility] [address] [place] [address] [phone] Elda Armstrong RN Paperwork/Forms 07/11/2024 Telephone [facility] [address] [place] [address] [phone] Luda Gimenez MD [facility] Supply (Underpad, bladder control moderate lng) 07/06/2024 Refill [facility] [address] [place] [address] [phone] Luda Gimenez MD Gastroesophageal reflux disease, unspecified whether esophagitis present 07/05/2024 Refill [facility] [address] [place] [address] [phone] Luda Gimenez MD Migraine without aura, not refractory; Gastroesophageal reflux disease, unspecified whether esophagitis present 07/01/2024 Orders Only [facility] [address] [place] [address] [phone] Gwen Del Real NP 07/01/2024 Refill [facility] [address] [place] [address] [phone] Nerissa Julian ANP Migraine without aura, not refractory 06/25/2024 Refill [facility] [address] [place] [address] [phone] Luda Gimenez MD Osteoarthritis of spine with radiculopathy, lumbar region 06/01/2024 Refill [facility] [address] [place] [address] [phone] Nerissa Julian ANP Migraine without aura, not refractory from Last 3 Months Immunizations Name Administration Dates Next Due Influenza injectable quadriv alent IIV4 with preservative 02/22/2018 Influenza injectable quadrivalent preservative f ree 02/07/2019,03/13/2017 Pneumococcal Conjugate PCV 20 01/06/2024 Tdap 01/06/2024 Family History Medical History Relation Name Comments Colon cancer Mother gastric ca Mother's Sister Relation Name Status Comments Mother Mother's Sister Social History Tobacco Use Types Packs/Day Years [...] Orientation Straight 01/06/2024 2: 48 PM EDT Last Filed Vital Signs Vital Sign Reading Time Taken Comments Blood Pressure 144/68 08/30/2024 1:33 PM EDT Pulse 92 08/30/2024 1:33 PM EDT Temperature 35.9 ??C (96.7 ??F) 08/30/2024 1:33 PM ED T Respiratory Rate 20 08/30/2024 1:33 PM EDT Oxygen Saturation 96% 08/30/2024 1:33 PM EDT Inhaled Oxygen Concentration - - Weight 68 kg (150 lb) 08/30/2024 1:33 PM EDT Height 149.9 cm (4' 11 ) 08/30/2024 1:33 PM EDT Body Mass Index 30.3 08/30/2024 1:33 PM EDT Plan of Treatment Upcoming Encounters Date Type Department Care Team (Late st Contact Info) Description 11/09/2024 2:45 PM EDT Office Visit [facility] [address] [place], [place] [phone] Luda Gimenez MD [address] [place] [address] Health Maintenance Due Date Last Done Comments CT Colonography 1959 FIT DNA/Cologuard 1959 FIT 1959 FOBT 1959 Sigmoidoscopy 1959 Hepatitis C Screening 1977 Pap Smear 1980 Cervical Cancer Screening 1989 HPV/Cotest 1989 Zoster Vaccines (1 of 2) 2009 RSV Patients and Patients Aged 60 years or older (1 - Risk 60-74 years 1-dose series) 2019 Mammogram 05/24/2022 05/24/2020 Diabetes: Hemoglobin A1C 01/06/2023 01/06/2022 COVID-19 Vaccine (2 - 2023-2 5 season) 2024 08/20/2020 Influenza Vaccine (#1) 2024 9, 02/22/2018, 03/13/2017 Depression Screening 01/05/2025 01/06/2024, 01/06/2024 Colonoscopy 03/11/2025 03/09/2020 Colorectal Cancer Screening 03/11/2025 Alcohol/Substance Use Screening 08/30/2025 08/30/2024 SDOH Screening 08/30/2025 08/30/2024 Tobacco Screening 08/30/2025 08/30/2024 Lipid Panel 01/06/2027 01/06/2022 DTaP/Tdap/Td Vaccines (2 - T d or Tdap) 01/05/2034 01/06/2024 Pneumococcal Vaccine: 50+ Years Completed 01/06/2024 HIB Vaccines Aged Out No longer eligi [...] patient's age to complete this topic Meningococcal Vaccine Aged Out No nusrat edilberto eligible based on patient's age to complete this topic RSV under 20 months Aged Out No longe r eligible based on patient's age to complete this topic Rotavirus Vaccines Aged Out No longer eligible based on patient's age to complete this topic Procedures Procedure Name Priority Date/Time Associated Diagnosis Comments XR KNEE 3 VIEWS RIGHT Routine 08/30/2024 2:40 PM EDT Right knee pain, unspecified chronicity XR THORACIC SPINE 3 VIEWS Routine 08/30/2024 2:39 PM EDT Back pain, unspecified back location, unspecified back pain laterality, unspecified chronicity XR LUMBAR SPINE 2-3 VIEWS Routine 08/30/2024 2:39 PM EDT Back pain, unspecified back location, unspecified back pain laterality, unspecified chronicity HEMOGLOBIN A1C Routine 01/06/2022 3:01 PM EDT LIPID PANEL, STANDARD Routine 01/06/2022 3:01 PM EDT BI MAMMOGRAM SCREENING BILATERAL Routine 05/24/2020 8:40 AM EST HM COLONOSCOPY Routine 03/09/2020 from Last 3 Months or Most Recently Relevant to Health Maintenance Results * XR Knee 3 Views Right (08/30/2024 2:40 PM EDT) Anatomical Region Laterality Modality Lower Extremities, Knee Right Radiogra phic Imaging 08/30/2024 2:40 PM EDT Narrative 08/30/2024 3:59 PM EDT ?[facility] ?[address] ?[place] [address] ?XRay Report ? Signed ? Patient: Dion Hughes ?MR#: [id number] ?? 7 ? : 1960 ?Acct:[id number] ? Age/Sex: 64 / F ?ADM Date: 08/30/24 ? Loc: HO.HHCX ? Attending Dr: Luda Chaudhry MD ? Ordering Physician: Luda Gimenez MD ?? Date of Service: 08/30/24 ?? Procedure(s): XR knee RT 3V ?? Accession Number(s): [id number] ? cc: Luda Gimenez MD ? EXAMINATION: ?? XR KNEE, RIGHT ? CLINICAL INFORMATION: ?? ongoing pain in her right knee ? COMPARISON: ?? None available. ? TECHNIQUE: ?? Four views of the right knee. ? FINDINGS: ?? No fracture or joint effusion. Alignment is anatomic. Joint spaces are ?? maintained. No abnormal soft tissue calcification. ? XR/XR knee RT 3V ?? IMPRESSION: ?? Normal right knee. ? Electronically signed by: ??Dwight Colón MD ??08/30/2024 03:56 PM EDT RP ? Dictated By: ?Dwight Colón MD ? Signed By: ?<Electronically signed by Dwight Colón MD in OV> ?08/30/24 1556 ? DD/ 1440 ? TD/TT: 08/30/24 1500 ? Garbage Truck Helper: ? Procedure Note Lata Singh - 08/30/2024 [facility] [address] [place] [address] XRay Report Signed Patient: Maria Elena Hughes#: [id number] 7 : 1960Acct:[id number] Age/Sex: 64 / FADM Date: 08/30/24 Loc: HO.HHCX Attending Dr: Luda Chaudhry MD Ordering Physician: Luda Gimenez MD Date of Service: 08/30/24 Procedure(s): XR knee RT 3V Accession Number(s): [id number] cc: Luda Gimenez MD EXAMINATION: XR KNEE, RIGHT CLINICAL INFORMATION: ongoing pain in her right knee COMPARISON: None available. TECHNIQUE: Four views of the right knee. FINDINGS: No fracture or joint effusion. Alignment is anatomic. Joint spaces are maintained. No abnormal soft tissue calcification. XR/XR knee RT 3V IMPRESSION: Normal right knee. Electronically signed by: Dwight Colón MD 08/30/2024 03:56 PM EDT Dictated By: Dwight Colón MD Signed By: <Electronically signed by Dwight Colón MD in OV> 08/30/24 1556 DD/ 1440 TD/TT: 08/30/24 1500 Garbage Truck Helper: us Luda Chaudhry MD IMG XR PROCEDURES Final Result * XR Lumbar Spine 2-3 Views (08/30/2024 2:39 PM EDT) Anatomical Region Laterality Modality Spine, L-spine Radiographic Katie ging 08/30/2024 2:39 PM EDT Narrative 08/30/2024 4:05 PM EDT ?[facility] ?[address] ?[place] [address] ?XRay Report ? Signed ? Patient: Ellen,Roselly ?MR#: [id number] ?? 7 ? : 1960 ?Acct:[id number] ? Age/Sex: 64 / F ?ADM Date: 04/22/25 ? Loc: HO.HHCX ? Attending Dr: Luda Chaudhry MD ? Ordering Physician: Luda Gimenez MD ?? Date of Service: 08/30/24 ?? Procedure(s): XR lumbar spine 2-3V ?? Accession Number(s): [id number] ? cc: Luda Gimenez MD ? EXAMINATION: ?? XR LUMBOSACRAL SPINE ? CLINICAL INFORMATION: ?? Chronic back pain ? COMPARISON: ?? None available. ? TECHNIQUE: ?? Three views of the lumbosacral spine. ? FINDINGS: ?? No scoliosis. Normal lordosis. ?? No fracture, compression deformity, or suspicious bone lesion. No ?? subluxations. ?? Minimal disc degeneration noted most significant at L2-3. ?? Normal facet alignment. ? SI joints and sacrum appear normal. ? Soft tissues demonstrate cholecystectomy clips. ? XR/XR lumbar spine 2-3V ?? IMPRESSION: ?? No acute bony abnormalities. Early disc degeneration. ? Electronically signed by: ??Dwight Colón MD ??08/30/2024 04:02 PM EDT RP ? Dictated By: ?Dwight Colón MD ? Signed By: ?<Electronically signed by Dwight Colón MD in OV> ?08/30/24 1602 ? DD/ 1439 ? TD/TT: 08/30/24 1500 ? Garbage Truck Helper: ? Procedure Note Lata Singh - 08/30/[address] [address] XRay Report Signed Patient: Maria Elena Hughes#: [id number] 7 : 1960Acct:[id number] Age/Sex: 64 / FADM Date: 08/30/24 Loc: HO.HHCX Attending Dr: Luda Chaudhry MD Ordering Physician: Luda Gimenez MD Date of Service: 08/30/24 Procedure(s): XR lumbar spine 2-3V Accession Number(s): [id number] cc: Luda Gimenez MD EXAMINATION: XR LUMBOSACRAL SPINE CLINICAL INFORMATION: Chronic back pain COMPARISON: None available. TECHNIQUE: Three views of the lumbosacral spine. FINDINGS: No scoliosis. Normal lordosis. No fracture, compression deformity, or suspicious bone lesion. No subluxations. Minimal disc degeneration noted most significant at L2-3. Normal facet alignment. SI joints and sacrum appear normal. Soft tissues demonstrate cholecystectomy clips. XR/XR lumbar spine 2-3V IMPRESSION: No acute bony abnormalities. Early disc degeneration. Electronically signed by: Dwight Colón MD 08/30/2024 04:02 PM EDT RP Dictated By: Dwight Colón MD Signed By: <Electronically signed by Dwight Colón MD in OV> 08/30/24 1602 DD/ 1439 TD/TT: 08/30/24 1500 Garbage Truck Helper: Luda Chaudhry MD IMG XR PROCEDURES Final Result * XR Thoracic Spine 3 Views (08/30/2024 2:39 PM EDT) Anatomical Region Laterality Modality Spine, T-spine Radiographic Katie ging 08/30/2024 2:39 PM EDT Narrative 08/30/2024 4:03 PM EDT ?[facility] ?[address] ?[place] [address] ?XRay Report ? Signed ? Patient: Dion Hughes ?MR#: [id number] ?? 7 ? : 1960 ?Acct:[id number] ? Age/Sex: 64 / F ?ADM Date: 08/30/24 ? Loc: HO.HHCX ? Attending Dr: Luda Chaudhry MD ? Ordering Physician: Luda Gimenez MD ?? Date of Service: 08/30/24 ?? Procedure(s): XR thoracic spine 3V ?? Accession Number(s): [id number] ? cc: Luda Gimenez MD ? EXAMINATION: ?? XR THORACIC SPINE ? CLINICAL INFORMATION: ?? Chronic back pain ? COMPARISON: ?? None available. ? TECHNIQUE: ?? 3 views of the thoracic spine were obtained. ? FINDINGS: ?? There is no significant scoliosis. There is a normal kyphosis. ?? There is no compression deformity, acute fracture, or suspicious bone ?? lesion. There is no malalignment. ?? Early multilevel disc space degeneration. Normal facet alignment. ? Soft tissues, imaged lungs and mediastinal contents appear normal. ? XR/XR thoracic spine 3V ?? IMPRESSION: ? 1. No acute findings. Minimal disc degeneration. ? Electronically signed by: ??Dwight Colón MD ??08/30/2024 04:00 PM EDT RP ? Dictated By: ?Dwight Colón MD ? Signed By: ?<Electronically signed by Dwight Colón MD in OV> ?08/30/24 1600 ? DD/ 1439 ? TD/TT: 08/30/24 1500 ? Garbage Truck Helper: ? Procedure Note Donsanditer, Image - 08/30/[address] [address] XRay Report Signed Patient: Maria Elena Hughes#: [id number] 7 : 1960Acct:[id number] Age/Sex: 64 / FADM Date: 08/30/24 Loc: HO.HHCX Attending Dr: Luda Chaudrhy MD Ordering Physician: Luda Gimenez MD Date of Service: 08/30/24 Procedure(s): XR thoracic spine 3V Accession Number(s): [id number] cc: Luda Gimenez MD EXAMINATION: XR THORACIC SPINE CLINICAL INFORMATION: Chronic back pain COMPARISON: None available. TECHNIQUE: 3 views of the thoracic spine were obtained. FINDINGS: There is no significant scoliosis. There is a normal kyphosis. There is no compression deformity, acute fracture, or suspicious bone lesion. There is no malalignment. Early multilevel disc space degeneration. Normal facet alignment. Soft tissues, imaged lungs and mediastinal contents appear normal. XR/XR thoracic spine 3V IMPRESSION: 1. No acute findings. Minimal disc degeneration. Electronically signed by: Dwight Colón MD 08/30/2024 04:00 PM EDT Dictated By: Dwight Colón MD Signed By: <Electronically signed by Dwight Colón MD in OV> 08/30/24 1600 DD/ 1439 TD/TT: 08/30/24 1500 Garbage Truck Helper: Luda Chaudhry MD IMG XR PROCEDURES Final Result * (ABNORMAL) HEMOGLOBIN A1c (01/06/2022 3:01 PM EDT) Pathologist [facility] Hemoglobin A1c 5.7(H) <5.7 % of total Hgb [facility] Comment: For someone without known diabetes, a hemoglobin ?? A1c value between 5.7% and 6.4% is consistent with prediabetes and should be confirmed with a ?? follow-up test. ?? For someone with known diabetes, a value <7% indicates that their diabetes is well controlled. A1c targets should be individualized based on duration of diabetes, age, comorbid conditions, and other considerations. ?? This assay result is consistent with an increased risk of diabetes. ?? Currently, no consensus exists regarding use of hemoglobin A1c for diagnosis of diabetes for children. ?? 01/06/2022 3:01 PM EDT Calli Bishop MD LAB BLOOD ORDERABLES Fin al Result [facility] [address] * (ABNORMAL) LIPID PANEL, STANDARD (01/06/2022 3:01 PM EDT) Pathologist [facility] Chol/HDLC Ratio 4.2 <5.0 (calc) [facility] Cholesterol, Total 210(H) <200 mg/dL [facility] HDL Cholesterol 50 > OR = 50 mg/dL [facility] LDL Cholesterol 125(H) mg/dL (calc) [facility] Comment: Reference range: <100 ?? Desirable range <100 mg/dL for primary prevention; ?? <70 mg/dL for patients with CHD or diabetic patients ?? with > or = 2 CHD risk factors. ?? LDL-C is now calculated using the Asa ?? calculation, which is a validated novel method providing ?? better accuracy than the Friedewald equation in the ?? estimation of LDL-C. ?? Scotty ZAMBRANO et al. MIRANDA. 2013;310(19): 8855-7031 ?? (http://education.Altia/faq/BXE392) Non-HDL Cholesterol 160(H) <130 mg/dL (calc) [facility] Comment: For patients with diabetes plus 1 major ASCVD risk ?? factor, treating to a non-HDL-C goal of <100 mg/dL ?? (LDL-C of <70 mg/dL) is considered a therapeutic ?? option. Triglycerides 212(H) <150 mg/dL [facility] Comment: ?? If a non-fasting specimen was collected, consider repeat triglyceride testing on a fasting specimen if clinically indicated. ?? Poncho et al. J. of Clin. Lipidol. 2015;9:129-169. ?? 01/06/2022 3:01 PM EDT Calli Bishop MD LAB BLOOD ORDERABLES Fin al Result [facility] [address] * Req: Mammogram (Screening); Bilateral (05/24/2020 8:40 AM EST) Anatomical Region Laterality Modality Breast Bilateral Mammography 05/24/2020 8:40 AM EST Narrative 05/24/2020 8:51 AM EST Refer to the Notes tab for result details [facility] Procedure: Req: Mammogram (Screening); Bilateral Procedure Note ProviderYoni MD - 08/02/2022 Refer to the Notes tab for result details [facility] Procedure: Req: Mammogram (Screening); Bilateral Calli Bishop MD IMG BI PROCEDURES Final Result * (ABNORMAL) Hm Colonoscopy (03/09/2020) Colonoscopy Abnormal( A) Normal [facility] Comment:positive FH of colon cancer 03/09/2020 Calli Bishop MD HEALTH MAINTENANCE Final Result Performing Organization Address City/[facility]/ZIP Co de Phone Number [facility] [facility] [address] [place] [phone] from Last 3 Months or Most Recently Relevant to Health Maintenance Insurance [employer] * Guarantor: Dion Hughes Account Type Relation to Patient Date of Phone Billing Address Personal/Family Self Hoda Sanchez [place] * Guarantor: Dion Hughes Account Type Relation to Patient Date of Phone Billing Address Personal/Family Self Hoda Sanchez [place] Care Teams Scanning Coordinator Relationship Specialty Start Date End Date Luda Gimenez MD [address] [place] [phone] PCP - General Internal Medicine 07/16/23
--- OUTSIDE RECORDS SUMMARY | 2024-08-30 17:30 | XMS_ITS | Encounter Summary ---
Author Organization [employer] Address 75 [facility] 7 [place] [address] Care Team Providers Care Cps Team Lead Name Role Phone Luda Gimenez MD Primary Care Pro vider Reason for Visit * Reason Onset Date Comments Durable Medical Equipment 08/30/2024 Encounter Details Date Type Department Care Team (Late st Contact Info) Description 08/30/2024 Telephone [facility] 230 [place], [place] [phone] Luda Gimenez MD 230 [place], [place] [phone] Durable Medical Equipment Social History Tobacco Use Types Packs/Day Years [...] encounter Miscellaneous Notes * Telephone Encounter - Bernadine Muñoz MA - 08/30/2024 3:34 PM EDT DME for Cane and Walker signed and faxed to Olivia . Confirmation received and sent to scan. If patient calls to check status on above, please advise them to contact Olivia at [phone]. * Telephone Encounter - Bernadine Muñoz MA - 08/30/2024 3:34 PM EDT ----- Message from Luda Chaudhry MD sent at 08/30/2024 1:59 PM EDT ----- Please assist pt getting DME: cane and Rolling walker for chronic back and knee pain ,with multiplefalls thanks documented in this encounter Plan of Treatment Upcoming Encounters Date Type Department Care Team (Late st Contact Info) Description 11/09/2024 2:45 PM EDT Office Visit [facility] 230 [place] [address] Luda Gimenez MD 230 [place] [address] documented as of this encounter Visit Diagnoses Not on filedocumented in this encounter Additional Health Concerns Assessment Noted Time PHQ-9 Depression Total Score: 1 01/06/20 2:26 PM EDT documented as of this encounter Care Teams Cps Team Lead Relationship Specialty Start Date End Date Luda Gimenez MD 230 [place] [address] PCP - General Internal Medicine 07/16/23 documented as of this encounter
--- OUTSIDE RECORDS SUMMARY | 2024-08-30 17:30 | XMS_ITS | Encounter Summary ---
Author Organization [employer] Address [address] [place] [address] 7[address] [place] [address] Care Team Providers Care Molder Pipe Covering Name Role Phone Calli Bishop MD Primary Care Provider + Luda Gimenez MD Primary Care Pro vider Encounter Details Date Type Department Care Team (Late st Contact Info) Description 05/14/2022 Orders Only [facility] & PEDS [address] [place], [place] [phone] Latasha Ziegler LPN Social History Tobacco Use Types Packs/Day Years Used Date Smoking Tobacco: Never Assessed Comments Unknown Sex and Gender Information Value Date Recorded Sex Assigned at Female 03/10/2022 10:15 AM EDT Legal Sex Female 10:15 AM EDT Gender Identity Female 03/10/2022 10:15 AM EDT Sexual Orientation Straight 01/06/2024 2 :48 PM EDT documented as of this encounter Plan of Treatment Upcoming Encounters Date Type Department Care Team (Late st Contact Info) Description 11/09/2024 2:45 PM EDT Office Visit [facility] 230 [place] [address] Luda Gimenez MD 230 [place], [place] [phone] documented as of this encounter Visit Diagnoses Not on filedocumented in this encounter Care Teams Molder Pipe Covering Relationship Specialty Start Date End Date Calli Bishop MD [address] [place] [address] [phone] PCP - General Family Medicine 12/06/18 07/15/23 Luda Gimenez MD [address] [place] [address] PCP - General Internal Medicine 07/16/23 documented as of this encounter
--- OUTSIDE RECORDS SUMMARY | 2024-08-30 17:30 | XMS_ITS | Encounter Summary ---
Author Organization [employer] [facility] Address [address] [place] [address] [address] [address] Care Team Providers Care Recoil Spring Winder Name Role Phone Calli Bishop MD Primary Care Provider + Luda Gimenez MD Primary Care Pro vider Reason for Visit * Reason Comments Med Refill Encounter Details Date Type Department Care Team (Late st Contact Info) Description 11/12/2022 Refill [facility] MEDICINE [address] [place] [address] [phone] Latasha Cordoba DO 230 [place], [place] [phone] Social History Tobacco Use Types Packs/Day Years Used Date Smoking Tobacco: Never Assessed Comments Unknown Sex and Gender Information Value Date Recorded Sex Assigned at Female 03/10/2022 10:15 AM EDT Legal Sex Female 10:15 AM EDT Gender Identity Female 03/10/2022 10:15 AM EDT Sexual Orientation Straight 01/06/2024 2: 48 PM EDT COVID-19 Exposure Response Date Recorded In the last 10 days, have yo u been in contact with someone who was confirmed or suspected to have Coronavirus/COVID-19? No / Unsure 10/24/2022 11:46 AM EDT documented as of this encounter Plan of Treatment Upcoming Encounters Date Type Department Care Team (Late st Contact Info) Description 11/09/2024 2:45 PM EDT Office Visit [facility] MEDICINE [address] [place] [address] [phone] Luda Gimenez MD 230 [place], [place] [phone] documented as of this encounter Visit Diagnoses Not on filedocumented in this encounter Care Teams Recoil Spring Winder Relationship Specialty Start Date End Date Calli Bishop MD [address] [place] [phone] PCP - General Family Medicine 12/06/18 07/15/23 Luda Gimenez MD [address] [place] [address] PCP - General Internal Medicine 07/16/23 documented as of this encounter
--- OUTSIDE RECORDS SUMMARY | 2024-08-30 17:30 | XMS_ITS | Encounter Summary ---
Author Organization [employer] [facility] Address [address] [place] [address] 7[address] [place] [address] Care Team Providers Care Piercer Operator Name Role Phone Calli Bishop MD Primary Care Provider + Luda Gimenez MD Primary Care Pro vider Reason for Visit * Reason Comments Med Refill Encounter Details Date Type Department Care Team (Late st Contact Info) Description 08/14/2022 Refill [facility] MEDICINE [address] [place] [address] [phone] Calli Bishop MD 230 [place], [place] [phone] Social History Tobacco Use Types Packs/Day Years [...] Description 11/09/2024 2:45 PM EDT Office Visit [facility] MEDICINE [address] [place] [address] [phone] Luda Gimenez MD [address] [place], [place] [phone] documented as of this encounter Visit Diagnoses Not on filedocumented in this encounter Care Teams Piercer Operator Relationship Specialty Start Date End Date Calli Bishop MD 230 [place] [address] PCP - General Family Medicine 12/06/18 07/15/23 Luda Gimenez MD [address] [place] [address] PCP - General Internal Medicine 07/16/23 documented as of this encounter
--- OUTSIDE RECORDS SUMMARY | 2024-08-30 17:30 | XMS_ITS | Encounter Summary ---
Author Organization [employer] [facility] Address [address] [place] [address] 7[address] [place] [address] Care Team Providers Care Scoop Operator Name Role Phone Calli Bishop MD Primary Care Provider + Luda Gimenez MD Primary Care Pro vider Encounter Details Date Type Department Care Team (Late st Contact Info) Description 11/05/2022 Orders Only [facility] [address] [place] [address] [phone] Calli Bishop MD [address] [place] [address] [phone] Social History Tobacco Use Types Packs/Day Years [...] Description 11/09/2024 2:45 PM EDT Office Visit [facility] [address] [place] [address] [phone] Luda Gimenez MD 230 [place], [place] [phone] documented as of this encounter Visit Diagnoses Not on filedocumented in this encounter Care Teams Scoop Operator Relationship Specialty Start Date End Date Calli Bishop MD [address] [place] [phone] PCP - General Family Medicine 12/06/18 07/15/23 Luda Gimenez MD [address] [place] [address] PCP - General Internal Medicine 07/16/23 documented as of this encounter
--- OUTSIDE RECORDS SUMMARY | 2024-08-30 17:30 | XMS_ITS | Encounter Summary ---
Author Organization [employer] Address [address] [place] [address] 7t [place] [address] Care Team Providers Care Cloth Cutting Machine Operator Name Role Phone Calli Bishop MD Primary Care Provider + Luda Gimenez MD Primary Care Pro vider Encounter Details Date Type Department Care Team (Late st Contact Info) Description 08/14/2022 Orders Only [facility] CH[facility] MED & PEDS 505 [place], [place] [phone] Latasha Ziegler LPN Social History Tobacco Use [...] Description 11/09/2024 2:45 PM EDT Office Visit [facility] 230 [place] [address] Luda Gimenez MD 230 [place], [place] [phone] documented as of this encounter Visit Diagnoses Not on filedocumented in this encounter Care Teams Cloth Cutting Machine Operator Relationship Specialty Start Date End Date Calli Bishop MD [address] [place] [address] [phone] PCP - General Family Medicine 12/06/18 07/15/23 Luda Gimenez MD [address] [place] [address] PCP - General Internal Medicine 07/16/23 documented as of this encounter
--- OUTSIDE RECORDS SUMMARY | 2024-08-30 17:31 | XMS_ITS | Encounter Summary ---
Author Organization [employer] Address [address] [place] [address] 7[address] [place] [address] Care Team Providers Care Mgmt Consultant Name Role Phone Luda Gimenez MD Primary Care Pro vider Reason for Referral * Medications - Closed Specialty Diagnoses / Procedures Referred By Giacomo mai Referred To Contact Diagnoses Osteoarthritis of spine with radiculopathy, lumbar region Luda Gimenez MD 230 [place] [address] Phone: tel: fax: Referral ID Status Reason Start Date Expiration Date Visits Re quested Visits Authorized [id number] Closed 1 1 * Imaging (Routine) - Authorized Specialty Diagnoses / Procedures Referred By Giacomo mai Referred To Contact Radiology Diagnoses Back pain, unspecified back location, unspecified back pain laterality, unspecified chronicity Procedures MR Lumbar Spine w/o Contrast Luda Gimenez MD 230 [place] [address] Phone: tel: fax: [facility] [address] [place] [address] Phone: tel: fax: Referral ID Status Reason Start Date Expiration Date V isits Requested Visits Authorized [id number] Authorized 08/30/2024 08/30/2025 1 1 Encounter Details Date Type Department Care Team (Late st Contact Info) Description 08/30/2024 1:15 PM EDT Office Visit [facility] MED[facility]INE 230 [place] [address] Luda Gimenez MD 230 [place], [place] [phone] Back pain, unspecified back location, unspecified back pain laterality, unspecified chronicity (Primary Dx); Osteoarthritis of spine with radiculopathy, lumbar region Social History Tobacco Use Types Packs/Day Years [...] your housing situation today? I have taurus sing 08/30/[address] you li [...] PM EDT documented as of this encounter Last Filed Vital Signs Vital Sign Reading [...] Mass Index 30.3 08/30/2024 1:33 PM EDT documented in this encounter Miscellaneous Notes * Result Encounter Note - Luda Chaudhry MD - 08/30/2024 1:15 PM EDT Pd lumbar XR report * Result Encounter Note - Luda Chaudhry MD - 08/30/2024 1:15 PM EDT Please inform pt that knee XR and [...] Description 11/09/2024 2:45 PM EDT Office Visit [facility] MEDICINE [address] [place] [phone] Luda Gimenez MD [address] [place] [address] Scheduled Orders Name Type Priority Associated Diagnoses Orde r Schedule MR Lumbar Spine w/o Contrast Imaging Routine Back pain, unspecified back location, unspecified back pain laterality, unspecified chronicity Expected: 08/30/2024, Expires: 08/30/2025 documented as of this encounter Procedures Procedure Name Priority Date/Time Associated Diagnosis Comments XR LUMBAR SPINE 2-3 VIEWS Routine 08/30/2024 2:39 PM EDT Back pain, unspecified back location, unspecified back pain laterality, unspecified chronicity XR THORACIC SPINE 3 VIEWS Routine 08/30/2024 2:39 PM EDT Back pain, unspecified back location, unspecified back pain laterality, unspecified chronicity documented in this encounter Results * XR Thoracic Spine 3 Views (08/30/2024 2:39 PM EDT) Anatomical Region Laterality Modality Spine, T-spine Radiographic Katie ging 08/30/2024 2:39 PM EDT Narrative 08/30/2024 4:03 PM EDT ?[facility] ?[address] ?[place] [address] ?XRay Report ? Signed ? Patient: Dion Hughes ?MR#: [id number] ?? 7 ? : 1960 ?Acct:[id number] ? Age/Sex: 64 / F ?ADM Date: 08/30/24 ? Loc: HO.HHCX ? Attending Dr: Luda Chaudhry MD ? Ordering Physician: Luda Gimenez MD ?? Date of Service: 08/30/24 ?? Procedure(s): XR thoracic spine 3V ?? Accession Number(s): [id number] ? cc: Luda Gimenez MD ? EXAMINATION: [...] DD/ 1439 ? TD/TT: 08/30/24 1500 ? Stain Applicator: ? Procedure Note Lata Singh - 08/30/[address] [address] XRay Report Signed Patient: Maria Elena Hughes#: [id number] 7 : 1960Acct:[id number] Age/Sex: 64 / FADM Date: 08/30/24 Loc: HO.HHCX Attending Dr: Luda Chaudhry MD Ordering Physician: Luda Gimenez MD Date of Service: 08/30/24 Procedure(s): XR thoracic spine 3V Accession Number(s): [id number] cc: Luda Gimenez MD EXAMINATION: XR THORACIC [...] 08/30/24 1600 DD/ 1439 TD/TT: 08/30/24 1500 Stain Applicator: us Luda Chaudhry MD IMG XR PROCEDURES Final Result * XR Lumbar Spine 2-3 Views (08/30/2024 2:39 PM EDT) Anatomical Region Laterality Modality Spine, L-spine Radiographic Katie ging 08/30/2024 2:39 PM EDT Narrative 08/30/2024 4:05 PM EDT ?[facility] ?[address] ?[place] [address] ?XRay Report ? Signed ? Patient: Dion Hughes ?MR#: [id number] ?? 7 ? : 1960 ?Acct:[id number] ? Age/Sex: 64 / F ?ADM Date: 08/30/24 ? Loc: HO.HHCX ? Attending Dr: Luda Chaudhry MD ? Ordering Physician: Luda Gimenez MD ?? Date of Service: 08/30/24 ?? Procedure(s): XR lumbar spine 2-3V ?? Accession Number(s): [id number] ? cc: Luda Gimenez MD ? EXAMINATION: [...] DD/ 1439 ? TD/TT: 08/30/24 1500 ? Stain Applicator: ? Procedure Note Donotuseinterpreter, Image - 08/30/[address] [address] XRay Report Signed Patient: Maria Elena Hughes#: [id number] 7 : 1960Acct:[id number] Age/Sex: 64 / FADM Date: 08/30/24 Loc: HO.HHCX Attending Dr: Luda Chaudhry MD Ordering Physician: Luda Gimenez MD Date of Service: 08/30/24 Procedure(s): XR lumbar spine 2-3V Accession Number(s): [id number] cc: Luad Gimenez MD EXAMINATION: XR LUMBOSACRAL SPINE CLINICAL [...] Dwight Colón MD 08/30/2024 04:02 PM EDT Dictated By: Dwight Colón MD Signed By: <Electronically signed by Dwight Colón MD in OV> 08/30/24 1602 DD/ 1439 TD/TT: 08/30/24 1500 Stain Applicator: Luda Chaudhry MD IMG XR PROCEDURES Final Result documented in this encounter Visit Diagnoses Diagnosis Back pain, unspecified back location, unspecified back pain laterality, unspecified chronicity- Primary Osteoarthritis of spine with radiculopathy, lumbar region documented in this encounter Additional Health Concerns Assessment Noted Time PHQ-9 Depression Total Score: 1 01/06/20 24 2:26 PM EDT documented as of this encounter Care Teams Mgmt Consultant Relationship Specialty Start Date End Date Luda Gimenez MD [address] [place] [phone] PCP - General Internal Medicine 07/16/23 documented as of this encounter
--- OUTSIDE RECORDS SUMMARY | 2024-08-30 17:31 | XMS_ITS | Encounter Summary ---
Author Organization [employer] [facility] Address [address] [place] [address] 7[place] [address] Care Team Providers Care Banquet Chef Name Role Phone Calli Bishop MD Primary Care Provider + Luda Gimenez MD Primary Care Pro vider Reason for Visit * Reason Comments Med Refill Encounter Details Date Type Department Care Team (Late st Contact Info) Description 04/07/2023 Refill [facility] MEDICINE [address] [place] [address] [phone] Calli Bishop MD 230 [place], [place] [phone] Gastroesophageal reflux disease, unspecified whether esophagitis present Social History Tobacco Use Types Packs/Day Years [...] Encounters Date Type Department Care Team (Late Contact Info) Description 11/09/2024 2:45 PM EDT Office Visit [facility] MEDICINE 230 [place], [place] [phone] Luda Gimenez MD 230 [place], [place] [phone] documented as of this encounter Visit Diagnoses Diagnosis Gastroesophageal reflux disease, unspecified whether esophagitis present documented in this encounter Care Teams Banquet Chef Relationship Specialty Start Date End Date Calli Bishop MD [address] [place] [address] PCP - General Family Medicine 12/06/18 07/15/23 Luda Gimenez MD 230 [place] [address] PCP - General Internal Medicine 07/16/23 documented as of this encounter
--- OUTSIDE RECORDS SUMMARY | 2024-08-30 17:31 | XMS_ITS | Encounter Summary ---
Author Organization [employer] Address [address] [facility] [address] 7t [place] [address] Care Team Providers Care Flavor Extractor Name Role Phone Luda Gimenez MD Primary Care Pro vider Encounter Details Date Type Department Care Team (Late st Contact Info) Description 07/01/2024 Orders Only [facility] 230 [place], [place] [phone] Gwen Del Real NP 230 [place], [place] [phone] Social History Tobacco Use Types Packs/Day Years Used Date Smoking Tobacco: Former Cigarettes Passive Smoke Exposure: Current Smokeless Tobacco: [...] your housing situation today? I have taurus lewis 08/25/[address] you li ve. Do you have problems with any of the following? None of the above 08/25/2023 Food Insecurity Answer Date Recorded Within the past 12 months, y ou worried that your food would run out before you got money to buy more: Sometimes True 2023 Within the past 12 months,th e food you bought just didn't last and you didn't have enough money to get more: Sometimes True 08/25/2023 Transportation Answer Date Recorded In the past 12 months, has l ack of transportation kept you from medical appts, meetings, work or from getting things needed for daily living? No 08/25/2023 Utilities Answer Date Recorded In the past 12 months, has t he electric, gas, oil or water company threatened to shut off services in your home? No 08/25/2023 Depression Answer Date Recorded Patient Health Questionnaire-2 [...] Description 11/09/2024 2:45 PM EDT Office Visit [facility] MEDICINE [address] [place] [phone] Luda Gimenez MD [address] [place] [address] [phone] documented as of this encounter Visit Diagnoses Not on filedocumented in this encounter Additional Health Concerns Assessment Noted Time PHQ-9 Depression Total Score: 1 01/06/20 24 2:26 PM EDT documented as of this encounter Care Teams Flavor Extractor Relationship Specialty Start Date End Date Luda Gimenez MD [address] [place] [address] [phone] PCP - General Internal Medicine 07/16/23 documented as of this encounter
--- OUTSIDE RECORDS SUMMARY | 2024-08-30 17:31 | XMS_ITS | Encounter Summary ---
Author Organization [employer] Address 75 [facility] 7 [place] [address] Care Team Providers Care Funder Name Role Phone Luda Gimenez MD Primary Care Pro vider Reason for Visit * Reason Onset Date Comments Prior Auth Prescription 08/26/2024 Encounter Details Date Type Department Care Team ([facility] st Contact Info) Description 08/26/2024 Telephone [facility] MEDICINE 230 [place], [place] [phone] Luda Gimenez MD 230 [place], [place] [phone] Prior Auth Prescription Social History Tobacco Use Types Packs/Day Years [...] housing situation today? I have taurus saucedo 08/25/[address] you li [...] encounter Miscellaneous Notes * Telephone Encounter - Sravanthi Payan - 08/26/2024 3:46 PM EDT PA initiated on Covermymeds for Lidocaine patches . Approval/denial pending. Joshi: [id number] documented in this encounter Plan of Treatment Upcoming Encounters Date Type Department Care Team (Late st Contact Info) Description 11/09/2024 2:45 PM EDT Office Visit [facility] MEDICINE 230 [place] [address] Luda Gimenez MD [address] [place] [address] documented as of this encounter Visit Diagnoses Not on filedocumented in this encounter Additional Health Concerns Assessment Noted Time PHQ-9 Depression Total Score: 1 01/06/20 24 2:26 PM EDT documented as of this encounter Care Teams Funder Relationship Specialty Start Date End Date Luda Gimenez MD [address] [place] [phone] PCP - General Internal Medicine 07/16/23 documented as of this encounter
--- OUTSIDE RECORDS SUMMARY | 2024-08-30 17:31 | XMS_ITS | Encounter Summary ---
Author Organization [employer] Address [address] [facility] 7t [place] [address] Care Team Providers Care Liner Installer Name Role Phone Luda Gimenez MD Primary Care Pro vider Reason for Visit * Reason Comments Med Refill Encounter Details Date Type Department Care Team (Late st Contact Info) Description 05/05/2024 Refill [facility] MEDICINE 230 [place], [place] [phone] Calli Bishop MD 230 [place], [place] [phone] Social History Tobacco Use Types Packs/Day Years [...] Description 11/09/2024 2:45 PM EDT Office Visit [facility] MEDICINE [address] [place] [phone] Luda Gimenez MD [address] [place] [phone] documented as of this encounter Visit Diagnoses Not on filedocumented in this encounter Additional Health Concerns Assessment Noted Time PHQ-9 Depression Total Score: 1 01/06/20 24 2:26 PM EDT documented as of this encounter Care Teams Liner Installer Relationship Specialty Start Date End Date Luda Gimenez MD [address] [place] [address] PCP - General Internal Medicine 07/16/23 documented as of this encounter
--- OUTSIDE RECORDS SUMMARY | 2024-08-30 17:31 | XMS_ITS | Encounter Summary ---
Author Organization [employer] Address [address] [facility] 7t [place] [address] Care Team Providers Care Director Of Accreditation Name Role Phone Luda Gimenez MD Primary Care Pro vider Encounter Details Date Type Department Care Team (Latest Contact Info) Description 08/30/2024 Travel Social History Tobacco Use Types Packs/Day Years [...] housing situation today? I have taurus lewis 08/30/[address] you li [...] 11/09/2024 2:45 PM EDT Office Visit [facility] MEDICINE [address] [place] [phone] Luda Gimenez MD [address] [place] [phone] documented as of this encounter Visit Diagnoses Not on filedocumented in this encounter Additional Health Concerns Assessment Noted Time PHQ-9 Depression Total Score: 1 01/06/20 24 2:26 PM EDT documented as of this encounter Care Teams Director Of Accreditation Relationship Specialty Start Date End Date Luda Gimenez MD [address] [place] [address] PCP - General Internal Medicine 07/16/23 documented as of this encounter
== END 2024-08-30 14:40 | disposition home or self-care (01) ==
LOC: HO.HHCX 14:39
PROVIDERS: Visit Provider Student in an Organized Health Care Education/Training Program
DX: M54.9 Dorsalgia, unspecified (principal); M25.561 Pain in right knee
CPT/HCPCS: 72072; 72100; 73562

== ENCOUNTER → 2024-08-30 14:40 | Outpatient (BNV) | payer MEDICAID, SELFPAY | PROVIDERS: Visit Provider Radiology Diagnostic Radiology | DX: M54.6 Pain in thoracic spine (principal); M51.360 Other intervertebral disc degeneration, lumbar region with discogenic back pain only; M25.561 Pain in right knee | CPT/HCPCS: 72072; 72100; 73562 ==

== ENCOUNTER 2024-09-07 16:58 | Outpatient (REF) | payer MEDICARE, MEDICAID, SELFPAY ==
--- NOTE | ~2024-09-07 | MR_ITS ---
EXAMINATION: MR LUMBAR SPINE WITHOUT CONTRAST CLINICAL INFORMATION: Low back pain . COMPARISON: February 10, 2023 TECHNIQUE: MRI of the lumbar spine was obtained using routine sequences without contrast. FINDINGS: Last rib-bearing vertebra labeled T12. Bone marrow inhomogeneity with intrinsic hyperintense T1 signal and subtle STIR signal abnormality at the S1 level, likely intraosseous hemangioma, similar findings at L4. Bone marrow inhomogeneity throughout the axial skeleton. Marginal osteophyte formation and disc desiccation at multiple levels of the lower thoracic and through the lumbar spine. There is normal alignment. Conus medullaris ends at pedicle of L1 with normal signal. T12-L1: No disc herniation. No neuroforamina stenosis. L1-2: No disc herniation. No neuroforamina stenosis. L1-2: No disc herniation. No neuroforamina stenosis. L2-3: No disc herniation. No neuroforamina stenosis. Broad-based disc bulging. Left facet effusion, small volume. L3-4: Broad-based disc bulging. Facet joint hypertrophy and facet effusion. Bilateral neuroforamina narrowing encroaching the exiting nerve roots. L4-5: Broad-based disc bulging. Facet joint hypertrophy resulting in bilateral neuroforamina narrowing encroaching the L4 exiting nerve roots and abutting the L5 on the lateral recesses. L5-S1: Broad-based disc bulging. Facet joint hypertrophy. Bilateral neuroforamina stenosis encroaching the L5 exiting nerve roots, left greater than the right side. No prevertebral compartment hematoma, mass or fluid collection. Small to moderate volume hiatal hernia. Soft tissue fullness in the adrenal glands. MR/MR lumbar spine wo con IMPRESSION: Multilevel lumbar spondylosis more conspicuous at L5-S1 and to a lesser extent L4-5 and L3-4 encroaching the exiting nerve roots. Electronically signed by: Sid Hughes MD 09/08/2024 02:51 PM EDT
--- OUTSIDE RECORDS SUMMARY | 2024-09-07 17:00 | XMS_ITS | Encounter Summary ---
Author Organization [facility] Address [address] [place] [address] 7t [place] [address] Care Team Providers Care Manager Nicu Name Role Phone Luda Gimenez MD Primary Care Pro vider Reason for Visit * Reason Comments Med Refill Encounter Details Date Type Department Care Team (Late st Contact Info) Description 08/11/2023 Refill [facility] [address] [place] [address] [phone] Calli Bishop MD [address] [place] [address] [phone] Osteoarthritis of spine with radiculopathy, lumbar region; [...] 2:45 PM EDT Office Visit [facility] [address] [place] [address] [phone] Luda Gimenez MD [address] [place], [place] [phone] documented as of this encounter Visit Diagnoses Diagnosis Osteoarthritis of spine with radiculopathy, lumbar region Acute exacerbation of chronic low back pain documented in this encounter Care Teams Manager Nicu Relationship Specialty Start Date End Date Luda Gimenez MD [address] [place] [phone] PCP - General Internal Medicine 07/16/23 documented as of this encounter
--- OUTSIDE RECORDS SUMMARY | 2024-09-07 17:01 | XMS_ITS | Encounter Summary ---
Author Organization [employer] [facility] Address [address] [place] [address] 7[address] [place] [address] Care Team Providers Care Academic Physician Name Role Phone Calli Bishop MD Primary Care Provider + Luda Gimenez MD Primary Care Pro vider Reason for Visit * Reason Comments Med Refill Encounter Details Date Type Department Care Team (Late st Contact Info) Description 08/14/2022 Refill [facility] [address] [place] [address] [phone] Calli Bishop MD [address] [place], [place] [phone] Social History Tobacco Use Types Packs/Day Years [...] Description 11/09/2024 2:45 PM EDT Office Visit [facility] [address] [place] [address] [phone] Luda Gimenez MD 230 [place], [place] [phone] documented as of this encounter Visit Diagnoses Not on filedocumented in this encounter Care Teams Academic Physician Relationship Specialty Start Date End Date Calli Bishop MD [address] [place] [address] PCP - General Family Medicine 12/06/18 07/15/23 Luda Gimenez MD 230 [place] [address] PCP - General Internal Medicine 07/16/23 documented as of this encounter
--- OUTSIDE RECORDS SUMMARY | 2024-09-07 17:01 | XMS_ITS | Encounter Summary ---
Author Organization [employer] Address [address] [place] [address] 7t [place] [address] Care Team Providers Care Bead Inspector Name Role Phone Calli Bishop MD Primary Care Provider + Luda Gimenez MD Primary Care Pro vider Encounter Details Date Type Department Care Team (Late st Contact Info) Description 05/14/2022 Orders Only [facility]S [address] [place], [place] [phone] Latasha Ziegler LPN Social History Tobacco Use [...] Description 11/09/2024 2:45 PM EDT Office Visit [facility] 230 [place] [address] Luda Giemnez MD 230 [place], [place] [phone] documented as of this encounter Visit Diagnoses Not on filedocumented in this encounter Care Teams Bead Inspector Relationship Specialty Start Date End Date Calli Bishop MD [address] [place] [address] [phone] PCP - General Family Medicine 12/06/18 07/15/23 Luda Gimenez MD [address] [place] [phone] PCP - General Internal Medicine 07/16/23 documented as of this encounter
--- OUTSIDE RECORDS SUMMARY | 2024-09-07 17:01 | XMS_ITS | Encounter Summary ---
Author Organization [employer] [facility] Address [address] [place] [address] 7[place], [place] [address] Care Team Providers Care Clinical Liaison Name Role Phone Calli Bishop MD Primary Care Provider + Luda iGmenez MD Primary Care Pro vider Reason for Visit * Reason Comments Med Refill Encounter Details Date Type Department Care Team (Late st Contact Info) Description 04/07/2023 Refill [facility] [address] [place] [address] [phone] Calli Bishop MD 230 [place], [place] [phone] Gastroesophageal reflux disease, unspecified whether esophagitis present [...] Description 11/09/2024 2:45 PM EDT Office Visit [facility] 230 [place], [place] [phone] Luda Gimenez MD 230 [place], [place] [phone] documented as of this encounter Visit Diagnoses Diagnosis Gastroesophageal reflux disease, unspecified whether esophagitis present documented in this encounter Care Teams Clinical Liaison Relationship Specialty Start Date End Date Calli Bishop MD 230 [place] [address] PCP - General Family Medicine 12/06/18 07/15/23 Luda Gimenez MD 230 [place] [address] PCP - General Internal Medicine 07/16/23 documented as of this encounter
--- OUTSIDE RECORDS SUMMARY | 2024-09-07 17:01 | XMS_ITS | Encounter Summary ---
Author Organization [employer] [facility] Address [address] [place] [address] 7t [place] [address] Care Team Providers Care Sheet Rock Nailer Name Role Phone Calli Bishop MD Primary Care Provider + Luda Gimenez MD Primary Care Pro vider Encounter Details Date Type Department Care Team (Late st Contact Info) Description 11/05/2022 Orders Only [facility] MEDICINE [address] [place] [address] [phone] Calli Bishop MD [address] [place] [address] [phone] Social History Tobacco Use Types Packs/Day Years [...] Description 11/09/2024 2:45 PM EDT Office Visit [facility] [address] [place] [address] [phone] Luda Gimenez MD 230 [place], [place] [phone] documented as of this encounter Visit Diagnoses Not on filedocumented in this encounter Care Teams Sheet Rock Nailer Relationship Specialty Start Date End Date Calli Bishop MD [address] [place] [phone] PCP - General Family Medicine 12/06/18 07/15/23 Luda Gimenez MD [address] [place] [address] PCP - General Internal Medicine 07/16/23 documented as of this encounter
--- OUTSIDE RECORDS SUMMARY | 2024-09-07 17:01 | XMS_ITS | Clinical Summary ---
Author Organization [employer] [facility] Address [address] [place] [address] Care Team Providers Care Sheet Metal Layout Mechanic Name Role Phone Unavailable Primary Care Provider [...]
--- OUTSIDE RECORDS SUMMARY | 2024-09-07 17:01 | XMS_ITS | Encounter Summary ---
Author Organization [employer] Address [address] 7t [place] [address] Care Team Providers Care Well Services Operator Name Role Phone Luda Gimenez MD Primary Care Pro vider Encounter Details Date Type Department Care Team (Late st Contact Info) Description 07/01/2024 Orders Only [facility] 230 [place], [place] [phone] Gwen Del Real NP 230 [place], [place] [phone] Social History Tobacco Use Types Packs/Day Years [...] 2:45 PM EDT Office Visit [facility] [address] [place] [phone] Luda Gimenez MD [address] [place] [address] [phone] documented as of this encounter Visit Diagnoses Not on filedocumented in this encounter Additional Health Concerns Assessment Noted Time PHQ-9 Depression Total Score: 1 01/06/20 24 2:26 PM EDT documented as of this encounter Care Teams Well Services Operator Relationship Specialty Start Date End Date Luda Gimenez MD [address] [place] [address] [phone] PCP - General Internal Medicine 07/16/23 documented as of this encounter
--- OUTSIDE RECORDS SUMMARY | 2024-09-07 17:01 | XMS_ITS | Encounter Summary ---
Author Organization [employer] Address [address] [place] [address] 7[place] [address] Care Team Providers Care Chucking Machine Set Up Operator Tool Name Role Phone Calli Bishop MD Primary Care Provider + Luda Gimenez MD Primary Care Pro vider Encounter Details Date Type Department Care Team (Late st Contact Info) Description 08/14/2022 Orders Only [facility] MED & PEDS 505 [place], [place] [phone] Latasha Ziegler LPN Social History Tobacco Use [...] 2:45 PM EDT Office Visit [facility] 230 [place] [address] Luda Gimenez MD 230 [place], [place] [phone] documented as of this encounter Visit Diagnoses Not on filedocumented in this encounter Care Teams Chucking Machine Set Up Operator Tool Relationship Specialty Start Date End Date Calli Bishop MD [address] [place] [address] [phone] PCP - General Family Medicine 12/06/18 07/15/23 Luda Gimenez MD [address] [place] [phone] PCP - General Internal Medicine 07/16/23 documented as of this encounter
--- OUTSIDE RECORDS SUMMARY | 2024-09-07 17:01 | XMS_ITS | Encounter Summary ---
Author Organization [employer] Address [address] [place] [address] 7[place] [address] Care Team Providers Care Vascular Surgeon Name Role Phone Calli Bishop MD Primary Care Provider + Luda Gimenez MD Primary Care Pro vider Encounter Details Date Type Department Care Team (Late st Contact Info) Description 01/14/2023 Orders Only [facility] PEDS 505 [place], [place] [phone] Latasha Ziegler LPN Social History Tobacco Use [...] Description 11/09/2024 2:45 PM EDT Office Visit [facility] 230 [place], [place] [phone] Luda Gimenez MD 230 [place], [place] [phone] documented as of this encounter Visit Diagnoses Not on filedocumented in this encounter Care Teams Vascular Surgeon Relationship Specialty Start Date End Date Calli Bishop MD 230 [place], [place] [phone] PCP - General Family Medicine 12/06/18 07/15/23 Luda Gimenez MD [address] [place] [phone] PCP - General Internal Medicine 07/16/23 documented as of this encounter
--- OUTSIDE RECORDS SUMMARY | 2024-09-07 17:01 | XMS_ITS | Clinical Summary ---
Author Organization [employer] Address [address] [facility] 7t [place] [address] Care Team Providers Care Transfer Professor Name Role Phone Luda Gimenez MD Primary [...] 024 Active ergocalciferol (Vitamin D2) 1.25 MG (61910 UT) capsule TAKE 1 CAPSULE BY MOUTH [...] 12 HOURS 90 patch 024 2024 Discontinued lidocaine (Lidoderm) 5 % patchIndications: Osteoarthritis of spine with radiculopathy, lumbar region APPLY 3 PATCHED TOPICALLY IN THE MORING AND REMOVE AFTER 12 HOURS 90 patch 025 2024 Discontinued(R eorder (will not trigger notification to Pharmacy)) Active Problems Problem Noted Date Diagnosed Date History of excision of pilonidal cyst 08/30/2024 Obesity (BMI 30-39.9) 08/30/2024 Migraine 01/06/2024 Right knee pain 01/06/2024 Lumbar [...] gastritis 03/09/2020 Overview (12/25/2022): EGD on 03/09/20 ([facility] Eduard Assessment & Plan (10/24/2022 2:03 PM EDT): Patient will call back GI to rs appt for fu Fu weight at next [...] Encounters Date Type Department Care Team Description 09/01/2024 Telephone [facility] [address] [place] [phone] Luda Gimenez MD DME for rollator walket L&C 08/30/2024 1:15 PM EDT Office Visit [address] [address] Luda Gimenez MD Back pain, unspecified back location, unspecified back pain laterality, unspecified chronicity (Primary Dx); Osteoarthritis of spine with radiculopathy, lumbar region; Dietary counseling; Exercise counseling; Bipolar disorder, current episode mixed, moderate (CMS/HCC); Benign neoplasm of brain, unspecified brain region (CMS/HCC); Lumbar radiculopathy, chronic; Essential hypertension; Other migraine without status migrainosus, not intractable; History of excision of pilonidal cyst; Obesity (BMI 30-39.9) 08/30/2024 Telephone [facility] [address] [place] [phone] Heidi Fagan, RN Results 08/30/[address] [address] Luda Gimenez MD Durable Medical Equipment 08/30/2024 Travel 08/26/[address] [address] Luda Gimenez MD Prior Auth Prescription 08/22/[address] [address] Luda Gimenez MD chart prep 08/22/2024 Patient Outreach [facility] 505 [place] [address] Luda Gimenez MD Pre-visit Planning ([facility] unable to complete.) 08/21/2024 Refill [facility] [address] [place] [phone] Calli Bishop MD Osteoarthritis of spine with radiculopathy, lumbar region 08/02/2024 Refill [facility] [address] [place] [phone] Gwen Del Real NP Migraine without aura, not refractory 07/31/2024 Refill [facility] [address] [facility] [place] [phone] Nerissa Julian ANP Mixed hyperlipidemia 07/22/2024 Telephone [facility] [address] [place] [address] Denise Chavez MD Medication Question 07/18/2024 Telephone [facility] [address] [place] [phone] Luda Gimenez MD August recalls 07/13/2024 Telephone [facility] [address] [place] [phone] Elda Armstrong RN Paperwork/Forms 07/11/[address] [address] Luda Gimenez MD [facility] Supply (Underpad, bladder control moderate lng) 07/06/2024 Refill [facility] [address] [place] [address] Luda Gimenez MD Gastroesophageal reflux disease, unspecified whether esophagitis present 07/05/2024 Refill [facility] [address] [place] [phone] Luda Gimenez MD Migraine without aura, not refractory; Gastroesophageal reflux disease, unspecified whether esophagitis present 07/01/2024 Orders Only [facility] [address] [place] [phone] Gwen Del Real NP 07/01/2024 Refill [facility] [address] [place] [address] Nerissa Julian ANP Migraine without aura, not refractory 06/25/2024 Refill [facility] [address] [place] [address] Luda Gimenez MD Osteoarthritis of spine with radiculopathy, lumbar region from Last 3 Months Immunizations Name Administration [...] Description 11/09/2024 2:45 PM EDT Office Visit [facility] [address] [place] [address] [phone] Luda Gimenez MD 230 [place], [place] [phone] Health Maintenance Due Date Last Done Comments [...] PM EDT Narrative 08/30/2024 3:59 PM EDT ?[facility] ?[address] ?[place] [address] ?XRay Report ? Signed ? Patient: Dion Hughes ?MR#: [id number] ?? 7 ? : 1960 ?Acct:[id number] ? Age/Sex: 64 / F ?ADM Date: 08/30/24 ? Loc: HO.HHCX ? Attending Dr: Luda Chaudhry MD ? Ordering Physician: Luda Gimenez MD ?? Date of Service: 08/30/24 ?? Procedure(s): XR knee RT 3V ?? Accession Number(s): [id number] ? cc: Luda Gimenez MD ? EXAMINATION: [...] Colón MD ??08/30/2024 03:56 PM EDT RP ?? Workstation: [id number] ? Dictated By: ?Dwight Colón MD ? Signed By: ?<Electronically signed by Dwight Colón MD in OV> ?08/30/24 1556 ? DD/ 1440 ? TD/TT: 08/30/24 1500 ? Charge Nurse: ? Procedure Note Lata Singh - 08/30/2024 [facility] [address] [place] [address] XRay Report Signed Patient: Maria Elena Hughes#: [id number] 7 : 1960Acct:[id number] Age/Sex: 64 / FADM Date: 08/30/24 Loc: HO.HHCX Attending Dr: Luda Chaudhry MD Ordering Physician: Luda Gimenez MD Date of Service: 08/30/24 Procedure(s): XR knee RT 3V Accession Number(s): [id number] cc: Luda Gimenez MD EXAMINATION: XR KNEE, [...] 08/30/24 1556 DD/ 1440 TD/TT: 08/30/24 1500 Charge Nurse: Luda Chaudhry MD IMG XR PROCEDURES Final Result * XR Lumbar Spine 2-3 Views (08/30/2024 2:39 PM EDT) Anatomical Region Laterality Modality Spine, L-spine Radiographic Katie ging 08/30/2024 2:39 PM EDT Narrative 08/30/2024 4:05 PM EDT ?[facility] ?[address] ?[place] [address] ?XRay Report ? Signed ? Patient: Ellen,Dion ?MR#: [id number] ?? 7 ? : 1960 ?Acct:[id number] ? Age/Sex: 64 / F ?ADM Date: 04/22/25 ? Loc: HO.HHCX ? Attending Dr: Luda Chaudhry MD ? Ordering Physician: Luda Gimenez MD ?? Date of Service: 08/30/24 ?? Procedure(s): XR lumbar spine 2-3V ?? Accession Number(s): [id number] ? cc: Luda Gimenez MD ? EXAMINATION: [...] DD/ 1439 ? TD/TT: 08/30/24 1500 ? Charge Nurse: ? Procedure Note Francisco, Lata - 08/30/2024 [place] [address] XRay Report Signed Patient: Maria Elena Hughes#: [id number] 7 : 1960Acct:[id number] Age/Sex: 64 / FADM Date: 08/30/24 Loc: HO.HHCX Attending Dr: Luda Chaudhry MD Ordering Physician: Luda Gimenez MD Date of Service: 08/30/24 Procedure(s): XR lumbar spine 2-3V Accession Number(s): [id number] cc: Luda Gimenez MD EXAMINATION: XR LUMBOSACRAL [...] 08/30/24 1602 DD/ 1439 TD/TT: 08/30/24 1500 Charge Nurse: Luda Chaudhry MD IMG XR PROCEDURES Final Result * XR Thoracic Spine 3 Views (08/30/2024 2:39 PM EDT) Anatomical Region Laterality Modality Spine, T-spine Radiographic Katie ging 08/30/2024 2:39 PM EDT Narrative 08/30/2024 4:03 PM EDT ?[facility] ?[address] ?[place] [address] ?XRay Report ? Signed ? Patient: Dion Hughes ?MR#: [id number] ?? 7 ? : 1960 ?Acct:[id number] ? Age/Sex: 64 / F ?ADM Date: 08/30/24 ? Loc: HO.HHCX ? Attending Dr: Luda Chaudhry MD ? Ordering Physician: Luda Gimenez MD ?? Date of Service: 08/30/24 ?? Procedure(s): XR thoracic spine 3V ?? Accession Number(s): [id number] ? cc: Luda Gimenez MD ? EXAMINATION: [...] DD/ 1439 ? TD/TT: 08/30/24 1500 ? Charge Nurse: ? Procedure Note Donsanditer, Image - 08/30/[address] [address] XRay Report Signed Patient: Maria Elena Hughes#: [id number] 7 : 1960Acct:[id number] Age/Sex: 64 / FADM Date: 08/30/24 [facility]: Luda Chaudhry MD Ordering Physician: Luda Gimenez MD Date of Service: 08/30/24 Procedure(s): XR thoracic spine 3V Accession Number(s): [id number] cc: Luda Gimenez MD EXAMINATION: XR THORACIC [...] 08/30/24 1600 DD/ 1439 TD/TT: 08/30/24 1500 Charge Nurse: us Luda Chaudhry MD IMG XR PROCEDURES Final Result * (ABNORMAL) HEMOGLOBIN A1c (01/06/2022 3:01 PM EDT) Hemoglobin A1c 5.7(H) <5.7 % of total [...] MD LAB BLOOD ORDERABLES Fin al Result [facility] [address] * (ABNORMAL) LIPID PANEL, STANDARD (01/06/2022 3:01 PM EDT) Pathologist [facility] Chol/HDLC Ratio 4.2 <5.0 (calc) [facility] [...] ?? Scotty ZAMBRANO et al. MIRANDA. 2013;310(19): 2629-3655 ?? (http://education.Chango.Celotor/faq/JYG677) Non-HDL Cholesterol 160(H) <130 mg/dL (calc) [facility] Comment: For patients with diabetes plus 1 major ASCVD risk ?? factor, treating to a non-HDL-C goal of <100 mg/dL ?? (LDL-C of <70 mg/dL) is considered a therapeutic ?? option. Triglycerides 212(H) <150 mg/dL [facility] Comment: ?? If a non-fasting specimen was collected, consider repeat triglyceride testing on a fasting specimen if clinically indicated. ?? Poncho et al. J. of Clin. Lipidol. 2015;9:129-169. ?? 01/06/2022 3:01 PM EDT Calli Bishop MD LAB BLOOD ORDERABLES Fin al Result Performing Organization Address City/[facility]/ZIP Co de Phone Number [facility] [address] [place] [address] * Req: Mammogram (Screening); Bilateral (05/24/2020 8:40 [...] Hm Colonoscopy (03/09/2020) Colonoscopy Abnormal( A) Normal [facility] Comment:positive FH of colon cancer 03/09/2020 Calli Bishop MD HEALTH MAINTENANCE Final Result Performing Organization Address City/[facility]/ZIP Co de Phone Number [facility] [address] [place] [address] [phone] from Last 3 Months or Most Recently Relevant to Health Maintenance Insurance [facility] STANDARD * Guarantor: iDon Hughes Account Type Relation to Patient Date of Phone Billing Address Personal/Family Self Hoda Sanchez [place] Care Teams Transfer Professor Relationship Specialty Start Date End Date Luda Gimenez MD [address] [place] [phone] PCP - General Internal Medicine 07/16/23
--- OUTSIDE RECORDS SUMMARY | 2024-09-07 17:01 | XMS_ITS | Encounter Summary ---
Author Organization [employer] [facility] Address [address] [place] [address] 7[address] [place] [address] Care Team Providers Care Crew Attendant Name Role Phone Calli Bishop MD Primary Care Provider + Luda Gimenez MD Primary Care Pro vider Reason for Visit * Reason Comments Med Refill Encounter Details Date Type Department Care Team (Late st Contact Info) Description 11/12/2022 Refill [facility] [address] [place] [address] [phone] Latasha Cordoba DO 230 [place], [place] [phone] Social History Tobacco Use Types Packs/Day Years [...] Description 11/09/2024 2:45 PM EDT Office Visit [facility] [address] [place] [address] [phone] Luda Gimenez MD 230 [place], [place] [phone] documented as of this encounter Visit Diagnoses Not on filedocumented in this encounter Care Teams Crew Attendant Relationship Specialty Start Date End Date Calli Bishop MD [address] [place] [address] 1944[address] PCP - General Family Medicine 12/06/18 07/15/23 Luda Gimenez MD [address] [place] [phone] PCP - General Internal Medicine 07/16/23 documented as of this encounter
--- OUTSIDE RECORDS SUMMARY | 2024-09-07 17:01 | XMS_ITS | Encounter Summary ---
Author Organization [employer] Address [address] [facility] 7t [place] [address] Care Team Providers Care Linux Server Administrator Name Role Phone Luda Gimenez MD Primary Care Pro vider Reason for Visit * Reason Comments Med Refill Encounter Details Date Type Department Care Team (Late st Contact Info) Description 05/05/2024 Refill [facility] 230 [place], [place] [phone] Calli Bishop MD 230 [place], [place] [phone] Social History Tobacco Use Types Packs/Day Years [...] Office Visit [facility] [address] [place] [phone] Luda Gimenez MD [address] [place] [phone] documented as of this encounter Visit Diagnoses Not on filedocumented in this encounter Additional Health Concerns Assessment Noted Time PHQ-9 Depression Total Score: 1 01/06/20 24 2:26 PM EDT documented as of this encounter Care Teams Linux Server Administrator Relationship Specialty Start Date End Date Luda Gimenez MD [address] [place] [phone] PCP - General Internal Medicine 07/16/23 documented as of this encounter
== END 2024-09-07 16:59 | disposition home or self-care (01) ==
LOC: HO.MRI 16:58
PROVIDERS: PCP Student in an Organized Health Care Education/Training Program; Visit Provider Student in an Organized Health Care Education/Training Program
DX: M54.9 Dorsalgia, unspecified (principal)
CPT/HCPCS: 72148

== ENCOUNTER → 2024-09-07 17:04 | Outpatient (BNV) | payer MEDICARE, MEDICAID, SELFPAY | PROVIDERS: PCP Student in an Organized Health Care Education/Training Program; Visit Provider Radiology Diagnostic Radiology | DX: M47.816 Spondylosis without myelopathy or radiculopathy, lumbar region (principal) | CPT/HCPCS: 72148 ==